=== PATIENT | male | born 1985 | race Caucasian/White ===

== ENCOUNTER 2016-07-27 20:02 | Inpatient (IN) | payer OTHER ==
[~2016-07-27] VITALS: Ht 167.6 cm; Wt 110.2 kg
[~2016-07-27 20:02] MED LIST: ABILIFY MA400 MG/Via IM; ABILIFY MA400 MG/Via IV; ABILIFY15 M1 PO; AMOXIL500 MG PO; BACTRIM DS 8001 TAB PO; CLINDAMYCIN HC300 M1 PO; CRESTOR20 MG PO; FLEXERIL10 MG PO; FLUCONAZOLE100 M1 PO; GEMFIBROZIL600 MG PO; GLUCOSE; HUMULIN R500 UNIT/2; JANUMET 1000 MG1 TAB PO; LAMICTAL 100MG100 MG PO; LAMICTAL200 MG PO; LAMOTRIGINE100 MG PO; LANTUS SOLOS100 U/ML SC; LEVEMIR 10100 UNITS/ SC; LEVEMIR FLEX100 U/M1 SC; LEVEMIR100 U/ML SC; LISINOPRIL10 MG PO; LYRICA100 MG PO; LYRICA75 MG PO; METFORMIN1000 MG PO; METHADONE HCL5 MG PO; METHADONE10 MG/5 ML PO; MOBIC15 MG PO; MOTRIN 400 MG400 MG PO; NOVOLOG 10300 UNITS/ SC; NOVOLOG100 U/ML SC; OMEGA-3-ACID ETH1 GM PO; PANTOPRAZOLE SO40 MG PO; REXULTI2 MG PO; SIMV10 PO; SUPER B COMPLEX1 CAP; [UNRECOGNIZED DRUG - CODE] IV
--- NOTE | 2016-07-27 20:07 | ED PSYCHIATRIC COMPLAINT ---
History of Present Illness General Chief Complaint: Psychiatric Related Complaint Stated Complaint: BIBA FOR +SI Source: patient Exam Limitations: no limitations Vital Signs & Intake/Output Vital Signs & Intake/Output Vital Signs Date Time Temp Pulse Resp B/P Pulse O2 O2 Flow FiO2 Ox Delivery Rate 07/28 0536 97.4 83 20 122/75 91 Room Air 07/28 0322 97.6 81 20 120/86 98 Non 100% ReBreather 07/27 2333 97.1 83 18 111/62 98 Non ReBreather 07/27 2247 96.6 83 18 112/59 98 Non 100% ReBreather 07/27 2016 97.3 106 16 138/74 98 Room Air ED Intake and Output 07/28 0000 07/27 1200 Intake Total Output Total Balance Patient 246 lb Weight Allergies Coded Allergies: NO KNOWN ALLERGIES (06/25/15) Reconcile Medications Aripiprazole (Abilify) 15 MG TABLET 1 TAB PO QPM MENTAL HEALTH (Reported) B COMPLEX WITH VITAMIN C (Super B Complex With C) (Unknown Strength) CAP ( Unknown Dose) SUPPLEMENT (Reported) Brexpiprazole (Rexulti) 2 MG TAB 1 TAB PO DAILY MENTAL HEALTH (Reported) Clindamycin HCl 300 MG CAPSULE 1 CAP PO TID ABCESS (Reported) Fluconazole 100 MG TABLET 1 TAB PO DAILY ABCESS (Reported) Insulin Regular, Human (Humulin R U-500 Kwikpen) (Unknown Strength) INSULN.PEN (Unknown Dose) DIABETES (Reported) Lamotrigine (Lamictal 100MG) 100 MG TAB 1 TAB PO BID DEPRESSION (Reported) METFORMIN HCL (Metformin) 1,000 MG TAB 1 TAB PO BID DIABETES (Reported) Methadone HCl 10 MG/1 ML ORAL.CONC 110 MG PO DAILY HERION (Reported) OMEGA-3 ACID ETHYL ESTERS ([place]-3 Acid Ethyl Esters) 1 GRAM CAPSULE 2 CAP PO BID CHOLESTEROL (Reported) Pantoprazole Sodium 40 MG TABLET.DR 1 TAB PO DAILY AC ACID REFLUX (Reported) Prazosin HCl 1 MG CAPSULE 1 CAP PO QPM PER PT (Reported) Pregabalin (Lyrica) 100 MG CAP 1 CAP PO BID NERVE PAIN (Reported) Trazodone HCl 100 MG TABLET 1 TAB PO QPM SLEEP (Reported) Triage Nurses Notes Reviewed? yes Onset: Gradual Duration: week(s):, waxing and waning Timing: recent history Severity: moderate Associated Symptoms: anxiety, suicidal ideation HPI: 30-year-old gentleman history of diabetes and bipolar disorder presents with depression and suicidality. He states that he had been drinking tonight. He states that he has been hearing voices telling him to kill himself. He states that his psychiatrist has been trying different medications to help the voices go away. He states that he has been compliant with his methadone and denies other drug use. He denies visual hallucinations. He denies homicidality. He is otherwise well. Past History Travel History Traveled to [place] past 21 day No Medical History Any Pertinent Medical History? see below for history Neurological: NONE EENT: NONE Cardiovascular: hypertension Respiratory: SLEEP APNEA USES CPAP Gastrointestinal: NONE Hepatic: NONE Renal: NONE Musculoskeletal: NONE Psychiatric: bipolar disease, depression, IV drug abuse, opioid dependence, substance abuse Endocrine: diabetes Blood Disorders: NONE Cancer(s): NONE ROADING ENGINEER/Reproductive: NONE History of MRSA: No History of VRE: No History of CDIFF: No Surgical History Surgical History: non-contributory Psychosocial History Who do you live with Significant Other What is your primary language Divehi Tobacco Use: Current Daily Use Family History Family History, If Any: MOTHER FH: depression FH: diabetes mellitus FHx: seizures Hx Contributory? No Review of Systems Review of Systems Constitutional: Reports: no symptoms. EENTM: Reports: no symptoms. Respiratory: Reports: no symptoms. Cardiovascular: Reports: no symptoms. GI: Reports: no symptoms. Genitourinary: Reports: no symptoms. Musculoskeletal: Reports: no symptoms. Skin: Reports: no symptoms. Neurological/Psychological: Reports: no symptoms. Hematologic/Endocrine: Reports: no symptoms. Immunologic/Allergic: Reports: no symptoms. All Other Systems: Reviewed and Negative Physical Exam Physical Exam General Appearance: well developed/nourished, mild distress Head: atraumatic Eyes: Bilateral: normal appearance, PERRL, EOMI. Ears, Nose, Throat: normal pharynx, normal ENT inspection, hearing grossly normal Neck: normal inspection, supple Respiratory: normal breath sounds Cardiovascular: regular rate/rhythm Gastrointestinal: soft, non-tender Extremities: normal range of motion Neurological/Psychiatric: awake, anxious, oriented x 3 Appearance/Memory/Insight: disheveled Behavoir/Eye Contact/Speech: AGITATED Thoughts/Hallucinations: auditory hallucinations Skin: intact, normal color, warm/dry SAD PERSONS SAD PERSONS Response Value Male Sex? yes 1 Depression/Hopelessness? yes 2 Excessive Ethanol/Drug Use? yes 1 Rational Thinking Loss? yes 2 Single//? yes 1 Social Support? has no support 1 Total 8 SAD PERSONS Done? yes Progress Differential Diagnosis: PSYCHOSIS VERSUS DRUG ABUSE VERSUS OTHER Plan of Care: Orders Procedure Date/time Status Regular Diet 07/28 B Active Admit to inpatient 07/28 0626 Active BLOOD CULTURE 07/28 0600 Active BLOOD CULTURE 07/28 0555 Active MIXED VENOUS BLOOD GAS (GEN) 07/28 0400 Active BASIC METABOLIC PANEL 07/28 0400 Complete MIXED VENOUS BLOOD GAS (GEN) 07/27 2007 Complete URINE DRUG SCREEN FOR ER ONLY 07/27 2007 Complete ETHANOL 07/27 2007 Complete COMPREHENSIVE METABOLIC PANEL 07/27 2007 Complete CBC WITHOUT DIFFERENTIAL 07/27 2007 Complete ACETONE 07/27 2007 Complete Current Medications Sig/Christopher Start time Last Medication Dose Stop Time Status Admin Methadone HCl 110 MG ONCE ONE 07/28 1000 AC (Dolophine) 07/28 1001 Azithromycin 500 MG ONCE ONE 07/28 0600 AC (Zithromax) 07/28 0659 Dextrose/Water 250 ML (D5W) Laboratory Tests 07/28/16 0412: Bicarbonate Actual 28 H, Mixed VBG pH 7.35, Mixed VBG pCO2 51, Mixed VBG O2 Saturation 70 H, P-50 (Temp Corrected) N, Oxyhemoglobin 97.8, Carboxyhemoglobin 2.0, Methemoglobin 0.0, Calc Total Hemoglobin 15.6, Oxygen Content 20.1, O2 Concentration % 100, O2 Delivery Method NRB, Anion Gap 8, Estimated GFR > 60, BUN/Creatinine Ratio 20.0, Glucose 135 H, Calcium 8.7, Phlebotomy Draw Site L HAND 07/27/162023: Urine Opiates Screen < 100.00, Methadone Screen > 735 H, Barbiturate Screen < 60, Ur Phencyclidine Scrn < 6.00, Amphetamines Screen < 100, U Benzodiazepines Scrn < 85, Urine Cocaine Screen < 50, Urine Cannabis Screen > 80.00 H 07/27/162019: Bicarbonate Actual 22, Mixed VBG pH 7.35, Mixed VBG pCO2 41, Mixed VBG O2 Saturation 60 H, Carboxyhemoglobin 12.8 *H, Calc Total Hemoglobin 17.2, O2 Concentration % R/A, Anion Gap 17 H, Estimated GFR > 60, BUN/Creatinine Ratio 13.3, Glucose 362 H, Calcium 9.6, Total Bilirubin 0.4, AST 17, ALT 31, Alkaline Phosphatase 78, Total Protein 7.7, Albumin 4.5, Globulin 3.2, Albumin/Globulin Ratio 1.4, CBC w Diff NO MAN DIFF REQ, RBC 5.77, MCV 84.7, MCH 29.0, RDW 13.9, MPV 7.2 L, Gran % 53.3, Lymphocytes % 38.1, Monocytes % 4.4, Eosinophils % 3.5, Basophils % 0.7, Absolute Granulocytes 3.3, Absolute Lymphocytes 2.4, Absolute Monocytes 0.3, Absolute Eosinophils 0.2, Absolute Basophils 0, PUBS MCHC 34.2, Phlebotomy Draw Site VENOUS, Serum Alcohol 197.0, Acetone Level NEGATIVE Microbiology 07/28 623 BLOOD: Blood Culture - RECD 07/28 554 BLOOD: Blood Culture - ORD Diagnostic Imaging: Viewed by Me: Radiology Read. Discussed w/RAD: Radiology Read. CXR Impression: right lower lobe infiltrate vs atelectasis Comments: PATIENT: FLOR MARTE PRESENT AGE: 30 PATIENT ACCOUNT NO: [id number] : 83 LOCATION: [facility] ORDERING PHYSICIAN: JAGRUTI MARTINEZ MD SERVICE DATE: 07/28/16 EXAM TYPE: RAD - XRY-PORTABLE CHEST XRAY EXAMINATION: CHEST 1 VIEW CLINICAL INFORMATION: Hypoxia. COMPARISON: 04/04/2016. TECHNIQUE: An AP view of the chest is provided. FINDINGS: The cardiac silhouette is not enlarged. The mediastinal and hilar contours are unremarkable. There are neither pleural effusions nor pneumothoraces. There is streaky bibasilar opacification. In addition, there is more patchy opacification at the lateral right lung base which obscures the right heart border The osseous structures are unremarkable. IMPRESSION: Right greater than left bibasilar airspace disease. While this could correspond to atelectasis, a developing infiltrate at the lateral right base cannot be excluded. Recommendation is for a followup chest series to be obtained following treatment and/or resolution of symptoms to assure resolution of this appearance. DICTATED BY: JOHN PAUL BAI MD DATE/TIME DICTATED:07/28/16605 COAT ROOM ATTENDANT:RAD.OAKLEY DATE/TIME TRANSCRIBED:07/28/16 / 605 CONFIDENTIAL, DO NOT COPY WITHOUT APPROPRIATE AUTHORIZATION. <Electronically signed in Other Vendor System> SIGNED BY: JOHN PAUL BAI MD 07/28/16 06 Departure Departure Disposition: STILL A PATIENT Condition: Stable Clinical Impression Primary Impression: Alcohol intoxication Secondary Impressions: Carbon monoxide poisoning, Depression, Hyperglycemia, Pneumonia Referrals: ZEENAT MCRAE APRN (PCP/Family) Departure Forms: Customer Survey General Discharge Information Comments 07/28/16, 6:27am.... Upon reevaluation this morning, patient was noted to have rhonchi on exam and he was hypoxic to 80% on room air. Chest x-ray revealed right lower lobe early infiltrate versus atelectasis. This would be most consistent with a pneumonia, community-acquired versus aspiration. Given his hypoxia, patient will now be converted from an ED observation to an inpatient admission. Please see my admit note below. Admission Note Spoke With: CHRISSY GIVENS,MICHAEL Broderick Documentation of Exam: Documentation of any treatments & extenuating circumstances including Concerns Regarding Discharge (functional status, medication knowledge or non-compliance, living conditions, etc.) that warrant an admission rather than observation: pt with hypoxia this am, now requiring 02 supplementation. He merits iv abx, 02 , iv fluids, psyche evaluation. Critical Care Note Critical Care Note Critical Care Time: 30-74 min ED Attending Observation Initial Observation Note: I have seen and personally examined FLOR MARTE on 07/27/16 at 2123. I agree with the current emergency department documentation. The disposition (admission or discharge) is uncertain at this time, he needs a period of observation for the following reason(s): [ pt with elevated carbon monoxide level, hyperglycemia, alcoholism and suicidality.... He requires insulin iv and subcutaneous doses to control his hyperglycemia. He will require high flow 02 for his hypercarbia. He will require psychiatric stabilization with meds prior to evaluation by crises. The ED Nurse caring for this patient has been personally informed as to what the patient is being observed for. Observation Re-Evaluation: I have reevaluated FLOR MARTE on 07/28/16 at 0536. The physical findings that support the continued need to observe this patient include ... Patient's follow-up carbon monoxide level is within normal limits. Repeat electrolytes reveal a much improved glucose. He is medically cleared and is able to be evaluated by crisis for his suicidality.
--- NOTE | 2016-07-27 20:13 | NUR ---
PT INOCENTE FROM HOME ON PEER. PT STATED VOICES IN HIS HEAD HAVING BEEN CALLING HIS NAME FOR APPROXIMATELY 7-10 DAYS. VOICES ARE NOT GIVING PT COMMANDS. +SI. -HI. PT DRANK HALF PINT OF VODKA EARLIER TODAY. DENIED ILLICIT DRUG USE. SECURITY AT BEDSIDE TO EDWIN PT. PT CHANGING INTO PAPER SCRUBS.
[2016-07-27] MEDS ORDERED: TRAZODONE HCL100 M1 PO (20:20)
[2016-07-27] MEDS ORDERED: PRAZOSIN HCL1 M1 PO (20:20)
--- NOTE | 2016-07-27 20:31 | NUR ---
LABS SENT (BLUE,SST,LAV,BONNER) VBG DRAWN AND GIVEN TO RESPIRATORY
[2016-07-27 20:33] LABS: ABSOLUTE BASOPHIL COUNT 0 /CUMM (0.0-0.2); ABSOLUTE EOSINOPHIL COUNT 0.2 /CUMM (0.0-0.7); ABSOLUTE GRANULOCYTE CT 3.3 /CUMM (1.4-6.5); ABSOLUTE LYMPH COUNT 2.4 /CUMM (1.2-3.4); ABSOLUTE MONOCYTE COUNT 0.3 /CUMM (0.10-0.60); BASOPHIL % 0.7 % (0.0-2.0); EOSINOPHIL % 3.5 % (0-5); GRANULOCYTE % 53.3 % (42.2-75.2); HEMATOCRIT 48.9 % (42-52); MEAN CORPUSCULAR HGB CONC 34.2 G/DL (33.0-37.0); MEAN CORPUSCULAR VOLUME 84.7 FL (80.0-94.0); MEAN PLATELET VOLUME 7.2 FL (7.4-10.4); PLATELET COUNT 305 /CUMM (130-400); RBC DISTRIBUTION WIDTH 13.9 % (11.5-14.5); RED BLOOD CELL CT 5.77 /CUMM (4.70-6.10); WHITE BLOOD CELL COUNT 6.2 /CUMM (4.8-10.8)
--- NOTE | 2016-07-27 20:34 | NUR ---
URINE TRIO SENT TO LAB
--- NOTE | 2016-07-27 20:36 | NUR ---
PT MEDICATED WITH ZYDIS 10MG ODT. 1 VALUABLE BAG SECURED IN SAFE, 1 BELONGING BAG SECURED IN CLOSET, AND 1 KNIFE SECURED BY SECURITY.
--- NOTE | 2016-07-27 20:43 | NUR ---
RESPIRATORY AT BEDSIDE - PT'S CARBOXYHEMOGLOBIN 12.5 - DR MARTINEZ ORDERED PT TO BE ON NRB
--- NOTE | 2016-07-27 20:45 | NUR ---
CRITICAL TEST RESULTS [id number] FLOR MARTE 30 M TESTS AND RESULTS: CARBOXYHEMOGLOBIN 12.8 Results received and read back by: JAZMINE JOSEPH Results received date and time: 07/27/162044 The following provider was notified of the results, and read the results back: DR MARTINEZ Notified date and time: 07/27/16 at 2038
--- NOTE | 2016-07-27 21:47 | NUR ---
ESTABLISHED IV RIGHT FOREARM #20. 1 LITER NS BOLUS RUNNING.
--- NOTE | 2016-07-27 22:10 | NUR ---
NS BOLUS STARTED. PT MEDICATED WITH NOVOLIN 5 UNITS SC AND NOVOLIN 5 UNITS IVP.
--- NOTE | 2016-07-27 22:40 | NUR ---
IV BOLUS COMPLETE. BLOOD GLUCOSE REASSESED AND IS 215MG/DL
--- NOTE | 2016-07-27 22:56 | NUR ---
2ND LITER NS BOLUS STARTED. PT MEDICATED WITH NOVOLIN 5 UNITS SC
--- NOTE | 2016-07-28 03:23 | NUR ---
ASSUMED CARE AT THIS TIME, PT AWAKE TO VERBAL STIMULI , O2 SAT ON 100 % O2 98 %. PT ALERT AND ORIENTED AND STATES THAT HE FEELS BETTER, COMPLAINS OF 6/10 BILATERAL LEG PAIN THAT HE STATES IS CHRONIC FOR HIM. PT AWARE THAT HE IS TO GET REPEAT BLOOD WORK AT 0400. PT WATCHING TV AT THIS TIME. SITTER REMAINS
--- NOTE | 2016-07-28 04:18 | NUR ---
LABS AND REPEAT VBG SENT BY [facility]
--- NOTE | 2016-07-28 05:39 | NUR ---
PT AWAKE AND ALERT, PER DR CRANDALL PT TO BE REMOVED FROM HIGH FLOW O2 AND TRIAL ROOM AIR, PT O2 SAT NOTED TO DROP TO 89-90 % ON RA, MD AWARE AND PT PLACED ON 2L VIA NC AT THIS TIME, PT STATES THAT HE HAS HAD A LOOSE COUGH, PRODUCTIVE OF YELLOW SPUTUM FOR THE PAST WEEK. 02 SAT NOTED WHILE THIS NURSE AT BEDSIDE TO BE 88 % ON 2L VIA NC, O2 INCREASED TO 5L NC AND SATURATION ONLY INCREASED TO 90-91 % MD AWARE. CXR ORDERED, FS 147 AT THIS TIME
--- NOTE | 2016-07-28 05:47 | NUR ---
PER DR CRANDALL PT PLACED BACK ON NON REBREATHER 15L, O2 SAT 94 % .SITTER REMAINS WITH PT
--- NOTE | 2016-07-28 06:12 | RADIOLOGY REPORT ---
EXAMINATION: CHEST 1 VIEW CLINICAL INFORMATION: Hypoxia. COMPARISON: 04/04/2016. TECHNIQUE: An AP view of the chest is provided. FINDINGS: The cardiac silhouette is not enlarged. The mediastinal and hilar contours are unremarkable. There are neither pleural effusions nor pneumothoraces. There is streaky bibasilar opacification. In addition, there is more patchy opacification at the lateral right lung base which obscures the right heart border The osseous structures are unremarkable. IMPRESSION: Right greater than left bibasilar airspace disease. While this could correspond to atelectasis, a developing infiltrate at the lateral right base cannot be excluded. Recommendation is for a followup chest series to be obtained following treatment and/or resolution of symptoms to assure resolution of this appearance.
--- NOTE | 2016-07-28 06:38 | NUR ---
BC X 2 DRAWN AND SENT, IV ROCEPHIN INFUSING PER ORDER. O2 SAT 94 % ON 15 L NON REBREATHER. PT TO BE ADMITTED TO HOSPITAL FOR PNA
--- NOTE | 2016-07-28 06:47 | NUR ---
O2 SAT 99 % ON NON REBREATHER, PLACED ON 5L VIA NC AT THIS TIME AND O2 SAT 94 % WILL CONTINUE TO MONITOR . IV ROCEPHIN GIVEN AND IV ZITHROMAX INFUSING AT THIS TIME
--- NOTE | 2016-07-28 07:27 | NUR ---
BED 237
--- NOTE | 2016-07-28 07:31 | NUR ---
ASSUMED CARE OF PT AT THIS TIME. PT SLEEPING BUT WAKES TO VERBAL STIMULI. STATES "I FEEL GOOD". PT DENIES FEELING ANY COMPLAINTS. DENIES PAIN. DENIES SOB. STATES HE DID EAT BREAKFAST THIS AM AND IS NOT HUNGRY AT THIS TIME. ZITHROMAX CONTINUES TO INFUSE. 02 SAT 97% ON 5L. NORMAL SINUS ON MONITOR, RATE 89 AWARE HE IS ADMITTED TO HOSPITAL AND WILL BE TRANSPORTED UPSTAIRS. SITTER REMAINS PRESENT FOR SAFETY/OBSERVATION.
--- NOTE | 2016-07-28 07:54 | NUR ---
REPORT GIVEN TO LUCREC[facility] ON 2N TRANSPORT CALLED
--- NOTE | 2016-07-28 07:55 | NUR ---
PT NOTED TO HAVE 1 VALUABLES BAG IN ED SAFE. SPOKE WITH NURSING ENAMEL [facility] WHO STATES TO SEND IT TO THE FLOOR WITH PT.
--- NOTE | 2016-07-28 07:57 | History & Physical ---
KENIA JOINER 07/28/16 0755: General Information and HPI MD Statement: I have seen and personally examined FLOR MARTE and documented this H&P. The patient is a 30 year old M who presented with a patient stated chief complaint of auditory hallucinations and not feeling well from couple of days [] . Source of Information: patient Exam Limitations: no limitations History of Present Illness: Patient is 30-year-old gentleman with past medical history significant for IV drug abuse and currently been clean for 1 year, hypertension, insulin- dependent diabetes mellitus, dyslipidemia, hep C, bipolar disorder, anxiety and depression came with chief complaint of not feeling well from couple of days. According to him his medications were messed up lately and he wasn't sure each medication he has to take and which were not to, he also admits that he was not feeling well and asked his friend called ambulance and brought him to ER. Patient admits that he had voices in his head telling him to kill himself but he denied any suicidal attempt. He denied any auditory hallucinations at the current moment neither visual hallucinations. Patient admits that he had productive cough of yellowish phlegm and also mild pleuritic chest pain but denies fever, headache, vomiting or bowel complaints. He endorses having chills and night sweats with poor appetite and significant almost 40-60 pound weight loss last year. Not compliant with his physician/psychiatry follow-ups. He had some nausea after starting new antipsychotics but he admits that he was trying to take them. Denied any seizures or loss of consciousness. Patient was at the beginning was kept as ED observation but found to have desaturation to low 80s and his oxygen saturations went up with supplemental oxygen and currently he is on 2 L of nasal cannula. Chest x-ray was ordered and done that was significant for bibasilar airspace disease. Of note patient is also admitting that he had half pint of vodka before coming to the hospital but he is not taking alcohol on a daily basis for many months. He is a current smoker almost a pack a day. [facility] All[facility]ies/Medications Allergies: Coded Allergies: NO KNOWN ALLERGIES (06/25/15) Home Med list Aripiprazole (Abilify) 15 MG TABLET 1 TAB PO QPM MENTAL HEALTH (Reported) B COMPLEX WITH VITAMIN C (Super B Complex With C) (Unknown Strength) CAP ( Unknown Dose) SUPPLEMENT (Reported) Brexpiprazole (Rexulti) 2 MG TAB 1 TAB PO DAILY MENTAL HEALTH (Reported) Gemfibrozil 600 MG TABLET 1 TAB PO BID HIGH CHOLESTROL (Reported) Insulin Regular, Human (Humulin R U-500 Kwikpen) (Unknown Strength) INSULN.PEN (Unknown Dose) DIABETES (Reported) Lamotrigine (Lamictal 100MG) 100 MG TAB 1 TAB PO BID DEPRESSION (Reported) Losartan Potassium (Cozaar) 25 MG TABLET 1 TAB PO DAILY HIGH BLOOD PRESSURE ( Reported) METFORMIN HCL (Metformin) 1,000 MG TAB 1 TAB PO BID DIABETES (Reported) Methadone HCl 10 MG/1 ML ORAL.CONC 110 MG PO DAILY HERION (Reported) OMEGA-3 ACID ETHYL ESTERS ([place]-3 Acid Ethyl Esters) 1 GRAM CAPSULE 2 CAP PO BID CHOLESTEROL (Reported) Pantoprazole Sodium 40 MG TABLET.DR 1 TAB PO DAILY AC ACID REFLUX (Reported) Prazosin HCl 1 MG CAPSULE 1 CAP PO QPM PER PT (Reported) Pregabalin (Lyrica) 100 MG CAP 1 CAP PO BID NERVE PAIN (Reported) Trazodone HCl 100 MG TABLET 1 TAB PO QPM SLEEP (Reported) Compliance With Home Meds: UNKNOWN Past History Travel History Traveled to [place] past 21 day No Medical History Neurological: NONE EENT: NONE Cardiovascular: hypertension Respiratory: SLEEP APNEA USES CPAP Gastrointestinal: NONE Hepatic: NONE Renal: NONE Musculoskeletal: NONE Psychiatric: bipolar disease, depression, IV drug abuse, opioid dependence, schizophrenia, substance abuse Endocrine: diabetes Blood Disorders: NONE Cancer(s): NONE HYDROGRAPHER/Reproductive: NONE History of MRSA: No History of VRE: No History of CDIFF: No Isolation History: Standard Surgical History Surgical History: non-contributory Past Family/Social History Family History Relations & Conditions if any MOTHER FH: depression FH: diabetes mellitus FHx: seizures Psychosocial History ETOH Use: occasional use Illicit Drug Use: cocaine Functional Ability ADLs Independent: dressing, eating, toileting, bathing. Ambulation: independent Review of Systems Review of Systems Constitutional: Reports: chills, weakness. EENTM: Denies: blurred vision. Cardiovascular: Denies: edema, orthopena. Respiratory: Reports: cough. GI: Reports: nausea. Denies: constipation. Genitourinary: Reports: dysuria. Denies: frequency, hematuria. Musculoskeletal: Denies: back pain, gout. Exam & Diagnostic Data Last 24 Hrs of Vital Signs/I&O Vital Signs Date Time Temp Pulse Resp B/P Pulse O2 O2 Flow FiO2 Ox Delivery Rate 07/28 0730 97.8 89 18 125/61 97 Nasal 5.0L Cannula 07/28 0644 97.6 78 20 126/66 95 Nasal 5.0L Cannula 07/28 0536 97.4 83 20 122/75 91 Room Air 07/28 0322 97.6 81 20 120/86 98 Non 100% ReBreather 07/27 2333 97.1 83 18 111/62 98 Non ReBreather 07/27 2247 96.6 83 18 112/59 98 Non 100% ReBreather 07/27 2017 97.3 106 16 138/74 98 Room Air Intake & Output 07/28 0800 07/28 0000 07/27 1600 Intake Total Output Total Balance Patient 246 lb Weight Physical Exam General Appearance Alert, Oriented X3, Cooperative, No Acute Distress Skin No Rashes Neck Supple Lungs BILATERAL BASAL RHONCHI AND COARSE WHEEZING Abdomen Soft Neurological Normal Speech Extremities No Clubbing, No Cyanosis, No Edema Last 24 Hrs of Labs/Javed: Laboratory Tests 07/28/16 0412: Bicarbonate Actual 28 H, Mixed VBG pH 7.35, Mixed VBG pCO2 51, Mixed VBG O2 Saturation 70 H, P-50 (Temp Corrected) N, Oxyhemoglobin 97.8, Carboxyhemoglobin 2.0, Methemoglobin 0.0, Calc Total Hemoglobin 15.6, Oxygen Content 20.1, O2 Concentration % 100, O2 Delivery Method NRB, Anion Gap 8, Estimated GFR > 60, BUN/Creatinine Ratio 20.0, Glucose 135 H, Calcium 8.7, Phlebotomy Draw Site L HAND, HIV 1&2 Ab Western Blot Pending 07/27/162023: Urine Opiates Screen < 100.00, Methadone Screen > 735 H, Barbiturate Screen < 60, Ur Phencyclidine Scrn < 6.00, Amphetamines Screen < 100, U Benzodiazepines Scrn < 85, Urine Cocaine Screen < 50, Urine Cannabis Screen > 80.00 H, Urine Color YEL, Urine Clarity CLEAR, Urine pH 6.0, Ur Specific [place] <= 1.005, Urine Protein TRACE H, Urine Ketones NEG, Urine Nitrite NEG, Urine Bilirubin NEG, Urine Urobilinogen 0.2, Ur Leukocyte Esterase NEG, Ur Microscopic SEDIMENT EXAMINED, Urine RBC 1-3, Urine WBC 1-3 H, Ur Epithelial Cells RARE, Urine Mucus RARE, Urine Hemoglobin NEG, Urine Glucose >=1000 H 07/27/16 2020: Bicarbonate Actual 22, Mixed VBG pH 7.35, Mixed VBG pCO2 41, Mixed VBG O2 Saturation 60 H, Carboxyhemoglobin 12.8 *H, Calc Total Hemoglobin 17.2, O2 Concentration % R/A, Anion Gap 17 H, Estimated GFR > 60, BUN/Creatinine Ratio 13.3, Glucose 362 H, Calcium 9.6, Total Bilirubin 0.4, AST 17, ALT 31, Alkaline Phosphatase 78, Total Protein 7.7, Albumin 4.5, Globulin 3.2, Albumin/Globulin Ratio 1.4, CBC w Diff NO MAN DIFF REQ, RBC 5.77, MCV 84.7, MCH 29.0, RDW 13.9, MPV 7.2 L, Gran % 53.3, Lymphocytes % 38.1, Monocytes % 4.4, Eosinophils % 3.5, Basophils % 0.7, Absolute Granulocytes 3.3, Absolute Lymphocytes 2.4, Absolute Monocytes 0.3, Absolute Eosinophils 0.2, Absolute Basophils 0, PUBS MCHC 34.2, Phlebotomy Draw Site VENOUS, Serum Alcohol 197.0, Acetone Level NEGATIVE Microbiology 07/28 824 LOWER RESP: Respiratory Culture - ORD 07/28 824 LOWER RESP: Gram Stain - ORD 07/28 635 BLOOD: Blood Culture - RECD 07/28 623 BLOOD: Blood Culture - RECD Diagnostic Data EKG Results , Sinus rhythm, QTC 455, no acute ST T-wave changes CXR Results EXAM TYPE: RAD - XRY-PORTABLE CHEST XRAY EXAMINATION: CHEST 1 VIEW CLINICAL INFORMATION: Hypoxia. COMPARISON: 04/04/2016. TECHNIQUE: An AP view of the chest is provided. FINDINGS: The cardiac silhouette is not enlarged. The mediastinal and hilar contours are unremarkable. There are neither pleural effusions nor pneumothoraces. There is streaky bibasilar opacification. In addition, there is more patchy opacification at the lateral right lung base which obscures the right heart border The osseous structures are unremarkable. IMPRESSION: Right greater than left bibasilar airspace disease. While this could correspond to atelectasis, a developing infiltrate at the lateral right base cannot be excluded. Recommendation is for a followup chest series to be obtained following treatment and/or resolution of symptoms to assure resolution of this appearance. Assessment/Plan Assessment: Patient is 30-year-old gentleman with past medical history of IV drug abuse, hep C, bipolar disease, anxiety, depression, insulin-dependent diabetes mellitus, hyperlipidemia, hypertension and polysubstance abuse on methadone came with a decreased hallucinations and positive suicidal ideation and found to have bibasilar airspace disease significant for pneumonia and hypoxia to low 80s requiring supplemental oxygen. We will admit patient to general medical floor and was taken for the following problems Problem #1 hypoxia, bilateral basilar airspace disease with productive cough most likely secondary to community-acquired pneumonia versus aspiration pneumonia which is less likely given no history of seizure and heavy alcohol abuse lately. * Vital signs every shift * We'll trend WBC count currently is normal WBC count * Seizure precautions * CIWA protocol and O2 was Ativan when necessary as per CIWA * IV ceftriaxone and azithromycin for now and will change if needed * Sputum culture, blood cultures * TRC and nebulization * Will start patient on 1 mg Ativan every 6 and will taper as per CIWA protocol Problem #2 hypertension and hyperlipidemia * We'll continue home medications including gemfibrozil and Cozaar Problem #3 history of diabetes mellitus * The checks and insulin sliding scale Problem #4 history of bipolar disease, methadone dependence, anxiety and depression on antipsychotics * We'll continue his home antipsychotics, anxiolytics * Psych consultation * Will continue methadone 110 mg daily Problem #5 history of significant weight loss and IV drug abuse * We'll send HIV testing Problem #6: Oral Thrush * [place]Statin oral suspension Diabetic diet Patient is full code Pharmacological DVT prophylaxis As Ranked By This Provider Problem List: 1. Pneumonia 2. Depression Core Measures/Miscellaneous Acute Coronary Syndrome ACS Diagnosis: No Cerebrovascular Accident CVA/TIA Diagnosis: No Congestive Heart Failure CHF Diagnosis: No Venous Thromboembolism VTE Risk Factors: Acute medical illness VTE Prophylaxis Ordered Inpt: Pharm- Lovenox No Mech VTE prophylaxis d/t: No contraindications No VTE Pharm Prophylaxis d/t: No contraindications VTE Diagnosis: No VTE Type: NONE VTE Confirmed by (Test): NONE Severe Sepsis Severe Sepsis Present: No Septic Shock Septic Shock Present: No Miscellaneous Documentation Attending Case Discussed With: CHRISSY GIVENS,MICHAEL Broderick Primary Care Physician: ZEENAT MCRAE APRN Patient sees these Specialists PSYCHIATRY Level of Patient Care: General Medicine Resident Review Statement Resident Statement: examined this patient Other Findings: Patient is admitted by resident MACARIO GARCIA MD 07/28/16 1207: Attending MD Review Statement Attending Statement Attending MD Statement: examined this patient, discuss w/resident/PA/BIOMEDICAL ELECTRONICS TECHNICIAN, agreed w/resident/PA/BIOMEDICAL ELECTRONICS TECHNICIAN, reviewed EMR data (avail), discussed with nursing, reviewed images, amended to note Attending Assessment/Plan: 30 y/o M with pmh sig for hypertension, insulin-dependent diabetes mellitus, dyslipidemia, hep C, bipolar disorder, anxiety and depression who p/w not feeling well over the last few days. Has been feeling more depressed. Also c/o cough and feeling sob as well as DOMINGO from last couple of weeks. Patient has been feeling more depressed therefore he started to drink alcohol. He claims that he normally does not drink every day but when he does he drinks a large amount. In the emergency room patient had expressed suicidal ideation. He claims that this comes and goes. He was also hypoxic and required oxygen. Vital Signs Date Time Temp Pulse Resp B/P Pulse O2 O2 Flow FiO2 Ox Delivery Rate 07/28 1151 Nasal 2.0L Cannula 07/28 1040 85 120/68 07/28 0855 97.8 85 20 120/68 96 Nasal 2.0L Cannula 07/28 0730 97.8 89 18 125/61 97 Nasal 5.0L Cannula 07/28 0644 97.6 78 20 126/66 95 Nasal 5.0L Cannula 07/28 0536 97.4 83 20 122/75 91 Room Air 07/28 0322 97.6 81 20 120/86 98 Non 100% ReBreather 07/27 2333 97.1 83 18 111/62 98 Non ReBreather 07/277 96.6 83 18 112/59 98 Non 100% ReBreather 07/27 2016 97.3 106 16 138/74 98 Room Air on exam: aox3, nad. cv; s1, s2, rrr. resp; + course bs and b/l exp wheeze. abd; soft, nt, bs+ ext; no edema. Laboratory Tests 07/28 Blood Gas Bicarbonate Actual (22 - 26 MEQ/L) 28 H Mixed VBG pH (7.31 - 7.41 PH) 7.35 Mixed VBG pCO2 (41 - 51 TORR) 51 Mixed VBG O2 Saturation (35 - 45 TORR) 70 H P-50 (Temp Corrected) N Oxyhemoglobin (94 - 100 %) 97.8 Carboxyhemoglobin (1.5 - 5.0 %) 2.0 Methemoglobin (0.0 - 3.0 %) 0.0 Calc Total Hemoglobin (13.5 - 18.0 %) 15.6 Oxygen Content (15 - 23 VOL%) 20.1 O2 Concentration % 100 O2 Delivery Method NRB Chemistry Sodium (137 - 145 mmol/L) 144 Potassium (3.5 - 5.1 mmol/L) 3.9 Chloride (98 - 107 mmol/L) 108 H Carbon Dioxide (22 - 30 mmol/L) 28 Anion Gap (5 - 16) 8 BUN (9 - 20 mg/dL) 10 Creatinine (0.7 - 1.2 mg/dL) 0.5 L Estimated GFR (>60 ml/min) > 60 BUN/Creatinine Ratio (7 - 25 %) 20.0 Glucose (65 - 99 mg/dL) 135 H Calcium (8.4 - 10.2 mg/dL) 8.7 Miscellaneous Phlebotomy Draw Site L HAND Serology HIV 1&2 Ab Western Blot (NONREACTIVE) NONREACTIVE Toxicology Urine Opiates Screen (>2000 NG/ML) < 100.00 Methadone Screen (>300 NG/ML) > 735 H Barbiturate Screen (>200 NG/ML) < 60 Ur Phencyclidine Scrn (>25 NG/ML) < 6.00 Amphetamines Screen (>1000 NG/ML) < 100 U Benzodiazepines Scrn (>200 NG/ML) < 85 Urine Cocaine Screen (>300 NG/ML) < 50 Urine Cannabis Screen (>50 NG/ML) > 80.00 H Urines Urine Color (YEL,AMB,STR) YEL Urine Clarity (CLEAR) CLEAR Urine pH (5.0 - 8.0) 6.0 Ur Specific [place] (1.001 - 1.035) <= 1.005 Urine Protein (NEG,<30 MG/DL) TRACE H Urine Ketones (NEG) NEG Urine Nitrite (NEG) NEG Urine Bilirubin (NEG) NEG Urine Urobilinogen (0.1 - 1.0 EU/dl) 0.2 Ur Leukocyte Esterase (NEG) NEG Ur Microscopic SEDIMENT EXAMINED Urine RBC (0 - 5 /HPF) 1-3 Urine WBC (0 - 2 /HPF) 1-3 H Ur Epithelial Cells (NONE,FEW) RARE Urine Mucus (FEW,NONE) RARE Urine Hemoglobin (NEG) NEG Urine Glucose (N MG/DL) >=1000 H 07/27 2020 Blood Gas Bicarbonate Actual (22 - 26 MEQ/L) 22 Mixed VBG pH (7.31 - 7.41 PH) 7.35 Mixed VBG pCO2 (41 - 51 TORR) 41 Mixed VBG O2 Saturation (35 - 45 TORR) 60 H Carboxyhemoglobin (1.5 - 5.0 %) 12.8 *H Calc Total Hemoglobin (13.5 - 18.0 %) 17.2 O2 Concentration % R/A Chemistry Sodium (137 - 145 mmol/L) 142 Potassium (3.5 - 5.1 mmol/L) 3.7 Chloride (98 - 107 mmol/L) 100 Carbon Dioxide (22 - 30 mmol/L) 24 Anion Gap (5 - 16) 17 H BUN (9 - 20 mg/dL) 8 L Creatinine (0.7 - 1.2 mg/dL) 0.6 L Estimated GFR (>60 ml/min) > 60 BUN/Creatinine Ratio (7 - 25 %) 13.3 Glucose (65 - 99 mg/dL) 362 H Calcium (8.4 - 10.2 mg/dL) 9.6 Total Bilirubin (0.2 - 1.3 mg/dL) 0.4 AST (17 - 59 U/L) 17 ALT (21 - 72 U/L) 31 Alkaline Phosphatase (< 127 U/L) 78 Total Protein (6.3 - 8.2 g/dL) 7.7 Albumin (3.5 - 5.0 g/dL) 4.5 Globulin (1.9 - 4.2 gm/dL) 3.2 Albumin/Globulin Ratio (1.1 - 2.2 %) 1.4 Hematology CBC w Diff NO MAN DIFF REQ WBC (4.8 - 10.8 /CUMM) 6.2 RBC (4.70 - 6.10 /CUMM) 5.77 Hgb (14.0 - 18.0 G/DL) 16.7 Hct (42 - 52 %) 48.9 MCV (80.0 - 94.0 FL) 84.7 MCH (27.0 - 31.0 PG) 29.0 RDW (11.5 - 14.5 %) 13.9 Plt Count (130 - 400 /CUMM) 305 MPV (7.4 - 10.4 FL) 7.2 L Gran % (42.2 - 75.2 %) 53.3 Lymphocytes % (20.5 - 51.1 %) 38.1 Monocytes % (1.7 - 9.3 %) 4.4 Eosinophils % (0 - 5 %) 3.5 Basophils % (0.0 - 2.0 %) 0.7 Absolute Granulocytes (1.4 - 6.5 /CUMM) 3.3 Absolute Lymphocytes (1.2 - 3.4 /CUMM) 2.4 Absolute Monocytes (0.10 - 0.60 /CUMM) 0.3 Absolute Eosinophils (0.0 - 0.7 /CUMM) 0.2 Absolute Basophils (0.0 - 0.2 /CUMM) 0 PUBS MCHC (33.0 - 37.0 G/DL) 34.2 Miscellaneous Phlebotomy Draw Site VENOUS Toxicology Serum Alcohol (<10 MG/DL) 197.0 Acetone Level (NEGATIVE) NEGATIVE CXR: Right greater than left bibasilar airspace disease. While this could correspond to atelectasis, a developing infiltrate at the lateral right base cannot be excluded. A/P: 30 y/o M with pmh sig for hypertension, insulin-dependent diabetes mellitus , dyslipidemia, hep C, bipolar disorder, anxiety and depression admitted with community acquired pneumonia, acute alcohol Intoxication, worsening depression, anxiety as well as suicidal ideation. Patient is admitted to medical floor. Patient be started on antibiotics. We'll obtain sputum cultures. Patient is also methadone dependent for history off chronic pain. We'll continue that. Patient be started on CIWA protocol, scheduled and when necessary Ativan as well as multivitamin, folate and thiamine. Patient should have a one-to-one sitter and psych consult should be obtained. Please order TRC nebs. Please confirm and continue home medications. Patient is also diabetic differently he will need to be on sliding scale coverage with Accu-Cheks. DVT prophylaxis: Lovenox. full code.
[2016-07-28] MEDS ORDERED: GEMFIBROZIL600 M1 PO (08:22)
[2016-07-28] MEDS ORDERED: COZAAR25 M1 PO (08:22)
--- NOTE | 2016-07-28 08:34 | NUR ---
HOUSE STAFF STATES THEY WILL BE ORDERING AN EKG BUT OK TO SEND PT TO FLOOR, "THEY CAN DO IT UPSTAIRS. HE CAN GO". PT TRANSPORTED AT THIS TIME; AWAKE, ALERT AND CONVERSING WITH NO DISTRESS NOTED; SAT 97% ON 5L. DENIES PAIN. ZITHROMAX COMPLETED. SITTER ACCOMPANYING PATIENT ON TRANSPORT.
[2016-07-28 08:55] VITALS: BP 120/68
--- NOTE | 2016-07-28 12:43 | Admission Certification ---
Admission Certification Certification Statement - As attending physician, I certify that at the time of - admission, based on clinical presentation, severity of - symptoms, need for further diagnostic testing and - therapeutic interventions, and risk of adverse outcomes - without in-hospital treatment, in my clinical assessment, - this patient requires an acute hospital stay for a minimum - of two nights or longer. I have also considered psychsocial - factors such as support system, advanced age, financial - issues, cognitive issues, and failed out-patient treatments, - past re-admission history, safety of patient, and lack of - compliance as applicable. Specific rationale supporting this admission is: Patient is admitted with clarity for pneumonia, acute alcohol intoxication, worsening depression and anxiety as well as suicidal ideation or needs IV antibiotics, psych evaluation.
[2016-07-28 13:48] VITALS: BP 120/70
[2016-07-28 19:00] VITALS: BP 128/60
[2016-07-28 22:55] VITALS: BP 130/80
[2016-07-29] VITALS (7 sets, daily range): BP systolic 100–124; BP diastolic 60–80
--- NOTE | 2016-07-29 07:22 | PN- Housestaff ---
TRUMAN CALI 07/29/16 0722: Subjective Follow-up For: Community-acquired pneumonia versus aspiration pneumonia. Alcohol abuse Subjective: Patient seen and examined today seems better slept well overnight. He remained afebrile breathing improved. Denies any chest discomfort .Blood cultures and sputum cultures are pending Will continue with IV ceftriaxone and azithromycin for now. CIWA scores remained low will taper the Ativan 1 mg every 8 hours continue Ativan as per CIWA. Review of Systems Constitutional: Denies: chills, diaphoresis, fever. EENTM: Denies: blurred vision, double vision, visual changes, eye pain. Cardiovascular: Denies: chest pain, edema, orthopena. Respiratory: Denies: cough, hemoptysis, orthopnea, short of breath. Gastrointestinal: Denies: abdominal pain, bloating, constipation, diarrhea. Genitourinary: Denies: discharge, dysuria, frequency, hesitation. Musculoskeletal: Denies: back pain, joint pain, joint swelling. Objective Last 24 Hrs of Vital Signs/I&O Vital Signs Date Time Temp Pulse Resp B/P Pulse O2 O2 Flow FiO2 Ox Delivery Rate 07/29 0834 76 124/76 07/29 0659 97.8 76 18 124/76 91 Room Air 07/29 0200 97.6 62 18 118/76 93 CPAP 07/29 0147 71 92 07/28 2255 96.5 65 20 130/80 95 CPAP 2.0L 07/28 2129 60 98 07/28 2116 72 110/78 07/28 1900 97.6 93 18 128/60 92 Room Air 07/28 1538 97 Nasal 2.0L Cannula 07/28 1348 98.8 76 20 120/70 95 07/28 1151 Nasal 2.0L Cannula 07/28 1040 85 120/68 07/28 0855 97.8 85 20 120/68 96 Nasal 2.0L Cannula Intake & Output 07/29 1600 07/29 0800 07/29 0000 Intake Total 120 Output Total Balance 120 Intake, Oral 120 Physical Exam General Appearance: Alert, Oriented X3 Skin: No Rashes, No Breakdown HEENT: Atraumatic, PERRLA Neck: Supple, No JVD Cardiovascular: Regular Rate, Normal S1, Normal S2 Lungs: Clear to Auscultation, Normal Air Movement Abdomen: Normal Bowel Sounds, Soft Current Medications: Current Medications Sig/Christopher Start time Last Medication Dose Route Stop Time Status Admin Acetaminophen 650 MG Q6P PRN 07/28 0800 AC PO Albuterol Sulfate 2 PUF Q4P PRN 07/28 1200 AC INH Aripiprazole 15 MG QPM 07/28 2200 AC 07/28 PO 2115 Azithromycin 500 MG DAILY 07/29 1000 AC Dextrose/Water 250 ML IV Azithromycin 500 MG DAILY 07/28 1000 DC Dextrose/Water 250 ML IV Ceftriaxone Sodium 1,000 MG DAILY 07/29 1000 AC IV Ceftriaxone Sodium 1,000 MG DAILY 07/28 1000 DC IV Enoxaparin Sodium 40 MG DAILY 07/28 1000 AC 07/29 SC 0836 Folic Acid 1 MG DAILY 07/28 1000 AC 07/29 PO 0836 Gemfibrozil 600 MG BID 07/28 1000 AC 07/29 PO 0835 Hydromorphone HCl 0.5 MG Q4P PRN 07/28 0800 AC IV Insulin Aspart 4 UNITS ONCE ONE 07/28 2330 DC 07/28 SC 07/28 2331 2325 Insulin Aspart 0 TIDAC 07/28 0800 AC 07/28 SC 1725 Ketorolac 15 MG Q6P PRN 07/28 0800 AC Tromethamine IV Lamotrigine 100 MG BID 07/28 1000 AC 07/28 PO 2115 Lorazepam 1 MG Q8 07/29 1400 UNVr PO Lorazepam 1 MG Q6 07/28 1200 DC 07/29 PO 0642 Lorazepam 0 Q1P PRN 07/28 0800 AC IV Losartan Potassium 25 MG DAILY 07/28 1000 AC 07/29 PO 0834 Methadone HCl 110 MG ONCE ONE 07/28 1000 DC 07/28 PO 07/28 1001 0933 Methadone HCl 110 MG DAILY 07/28 1000 AC 07/29 PO 0827 Multivitamins 1 TAB DAILY 07/28 1000 AC 07/28 PO 1042 Nystatin 5 ML 4 TIMES/DAY 07/28 1000 AC 07/28 PO 2115 Patient Medication 1 ED .STK-MED ONE 07/28 1403 DC Teaching ED 07/28 1404 Prazosin HCl 1 MG QPM 07/28 2200 AC 07/28 PO 2116 Pregabalin 100 MG BID 07/28 1000 AC 07/29 PO 0835 Thiamine HCl 100 MG DAILY 07/28 1000 AC 07/29 PO 0836 Assessment/Plan Assessment: Patient is 30-year-old gentleman with past medical history of IV drug abuse, hep C, bipolar disease, anxiety, depression, insulin-dependent diabetes mellitus, hyperlipidemia, hypertension and polysubstance abuse on methadone came with a decreased hallucinations and positive suicidal ideation and found to have bibasilar airspace disease significant for pneumonia and hypoxia to low 80s requiring supplemental oxygen. Patient has been admitted to general medical floor for the following problems Problem #1 hypoxia, bilateral basilar airspace disease with productive cough most likely secondary to community-acquired pneumonia: * Continue IV azithromycin and ceftriaxone pending sputum and blood cultures * Vital signs every shift. * TRC nebs as needed. 2. Alcohol abuse: * CIWA scores remained low will taper the Ativan 1 mg every 8 hours continue Ativan as per CIWA. * Continue thiamine, folate and vitamin B12 * Continue seizure and fall precautions. * Social consult * Follow psych recommendations 3 hypertension and hyperlipidemia: * We'll continue home medications including gemfibrozil and Cozaar. 4.history of diabetes mellitus: * Continue with NovoLog sliding scale. * Hemoglobin A1c in May 2015 was 13.2 Will recheck it again * Continue finger sugar sticks 5. history of bipolar disease, methadone dependence, anxiety and depression on antipsychotics * We'll continue his home antipsychotics, anxiolytics * Psych consultation * Will continue methadone 110 mg daily. 6 history of significant weight loss and IV drug abuse * HIV test came negative * Follow-up further workup as an outpatient. 7.Oral Thrush * NYStatin oral suspension Diabetic diet Patient is full code Pharmacological DVT prophylaxis Problem List: 1. Pneumonia 2. Alcohol intoxication Pain Ratin Pain Location: No pain at this time Pain Goal: Remain pain free Pain Plan: When necessary Tylenol Tomorrow's Labs & Rationales: No need of labs tomorrow MACARIO GARCIA MD 07/29/16 1116: Attending MD Review Statement Attending Statement Attending MD Statement: examined this patient, discuss w/resident/PA/BOOKKEEPER, agreed w/resident/PA/BOOKKEEPER, reviewed EMR data (avail), discussed with nursing, amended to note Attending Assessment/Plan: Patient seen and examined, overall feeling better. Not requiring any oxygen anymore. Breathing has improved. Patient is requesting for a Nicorette gum. Vital Signs Date Time Temp Pulse Resp B/P Pulse O2 O2 Flow FiO2 Ox Delivery Rate 07/29 0834 76 124/76 07/29 0800 Room Air 07/29 0659 97.8 76 18 124/76 91 Room Air 07/29 0200 97.6 62 18 118/76 93 CPAP 07/29 0147 71 92 07/28 2255 96.5 65 20 130/80 95 CPAP 2.0L 07/28 2129 60 98 07/28 2116 72 110/78 07/28 1900 97.6 93 18 128/60 92 Room Air 07/28 1538 97 Nasal 2.0L Cannula 07/28 1348 98.8 76 20 120/70 95 07/28 1151 Nasal 2.0L Cannula on exam; aox3, nad. cv; s1,s2, rrr. resp; clear abd; soft, nt, bs+ ext; no edema. no labs A/P; 30 y/o M with pmh sig for hypertension, insulin-dependent diabetes mellitus , dyslipidemia, hep C, bipolar disorder, anxiety and depression admitted with community acquired pneumonia, acute alcohol Intoxication, worsening depression, anxiety as well as suicidal ideation. Continue current antibiotics. We will follow-up on cultures. Patient is requesting Nicorette gum. CIWA scores are running low therefore will a per the scheduled Ativan. Continue when necessary Ativan. Continue multivitamin, folate and thiamine. Follow-up psych consult. Please resume home medication metformin. DVT px: Lovenox. Continue 1:1 sitter.
--- NOTE | 2016-07-29 12:54 | Cons- Psychiatry ---
ANG GRANGER APRN 07/29/16 1238: Psychiatric Consult Date of Consult: 07/29/16 Reason for Consult: "bipolar, SI" [Note: The patient admits that he tried to commit suicide with plan and intent. He sat in his truck with the leaky exhaust system with the engine running. Attempt aborted when his friend found him after approx. 5 minutes, had the patient turn the truck off. The patient then called 211 or 911.] History of Present Illness: 30 M BIBA from home on PEER on 07/27/16 @2013 with CC of non-command auditory hallucinations for 7-10 days. Patient had attempted suicide by asphyxiation. Carboxyhemoglobin 12.8 on admission; patient started on NRB. He is being treated for pneumonia. The patient had previously been followed at [facility], but was discharged in 2011. Allergies: Coded Allergies: NO KNOWN ALLERGIES (06/25/15) Current Medications: Current Medications Sig/Christopher Start time Last Medication Dose Route Stop Time Status Admin Acetaminophen 650 MG Q6P PRN 07/28 0800 AC PO Albuterol Sulfate 2 PUF Q4P PRN 07/28 1200 AC INH Amoxicillin/ 875 MG Q12 07/30 1000 AC Clavulanate Potassium PO Amoxicillin/ 875 MG Q12 07/29 2200 DC Clavulanate Potassium PO Aripiprazole 15 MG QPM 07/28 2200 AC 07/28 PO 2115 Azithromycin 500 MG DAILY 07/29 1000 DC 07/29 Dextrose/Water 250 ML IV 1121 Ceftriaxone Sodium 1,000 MG DAILY 07/29 1000 DC 07/29 IV 0841 Enoxaparin Sodium 40 MG DAILY 07/28 1000 AC 07/29 SC 0836 Folic Acid 1 MG DAILY 07/28 1000 AC 07/29 PO 0836 Gemfibrozil 600 MG BID 07/28 1000 AC 07/29 PO 0835 Hydromorphone HCl 0.5 MG Q4P PRN 07/28 0800 AC IV Insulin Aspart 4 UNITS ONCE ONE 07/28 2330 DC 07/28 SC 07/28 2331 2325 Insulin Aspart 0 TIDAC 07/28 0800 AC 07/29 SC 1646 Ketorolac 15 MG Q6P PRN 07/28 0800 AC Tromethamine IV Lamotrigine 100 MG BID 07/28 1000 AC 07/29 PO 0842 Lorazepam 0 Q1P PRN 07/29 1645 AC 07/29 IV 1647 Lorazepam 1 MG Q8 07/29 1400 AC 07/29 PO 1414 Lorazepam 1 MG Q6 07/28 1200 DC 07/29 PO 0642 Lorazepam 0 Q1P PRN 07/28 0800 DC IV Losartan Potassium 25 MG DAILY 07/28 1000 AC 07/29 PO 0834 Metformin HCl 1,000 MG 0800,1700 07/29 1700 AC 07/29 PO 1646 Methadone HCl 110 MG DAILY 07/28 1000 AC 07/29 PO 0827 Multivitamins 1 TAB DAILY 07/28 1000 AC 07/29 PO 0839 Nicotine 21 MG DAILY 07/29 1415 AC 07/29 TOP 1619 Nystatin 5 ML 4 TIMES/DAY 07/28 1000 AC 07/29 PO 1734 Patient Medication 1 ED .STK-MED ONE 07/29 1408 DC Teaching ED 07/29 1409 Prazosin HCl 1 MG QPM 07/28 2200 AC 07/28 PO 2116 Pregabalin 100 MG BID 07/28 1000 AC 07/29 PO 0835 Thiamine HCl 100 MG DAILY 07/28 1000 AC 07/29 PO 0836 Past History Past Medical History Neurological: NONE Cardiovascular: hypertension, hyperlipidemia Respiratory: SLEEP APNEA USES CPAP Gastrointestinal: GERD Hepatic: NONE Renal: NONE Musculoskeletal: NONE Psychiatric: bipolar disease, depression, IV drug abuse, opioid dependence, schizophrenia, substance abuse Endocrine: diabetes Blood Disorders: NONE Cancer(s): NONE SCHOOL PSYCHOMETRIST/Reproductive: NONE Past Surgical History Surgical History: R LEG FX CYSTS LANCED ON BACK, NECK AND R AXILLARY Psychosocial History Strengths/Capabilities: "I like to build things" Physical Limitations (Interventions): No functional disabilities at this time, however, the patient is on CPAP at night, requires IV antibiotics every 4 hours for a PICC in his left arm. Blood pressure, IV and lab draws on right arm, only, unless authorized. Psychiatric Treatment History Diagnosis: See below Risk Factors: history of suicide atmpts, SA/MH hospitalized, substance abuse, poor impulse control, male, limited support Assessment/Plan Mental Status Mental Status Exam: The patient is calm, sitting on his bed. He is oriented to person, place, but not day. He currently denies SI/HI. He denies AVTH, but reports that he has had been having auditory hallucinations for a few months. He reports that he saw his aunt in his bedroom room the other night, the first time this has happened. He denies she was reallt there. He reports racing thoughts that he cannot control, "They can happen anytime." He has times when he does not sleep for more than 2 hours about 3-4 X/year. The parient has been locking himself in his room for about a month, and did not shower for a month. He has been living at his aunt's house Lab Results: Laboratory Tests 07/28 Blood Gas Bicarbonate Actual (22 - 26 MEQ/L) 28 H Mixed VBG pH (7.31 - 7.41 PH) 7.35 Mixed VBG pCO2 (41 - 51 TORR) 51 Mixed VBG O2 Saturation (35 - 45 TORR) 70 H P-50 (Temp Corrected) N Oxyhemoglobin (94 - 100 %) 97.8 Carboxyhemoglobin (1.5 - 5.0 %) 2.0 Methemoglobin (0.0 - 3.0 %) 0.0 Calc Total Hemoglobin (13.5 - 18.0 %) 15.6 Oxygen Content (15 - 23 VOL%) 20.1 O2 Concentration % 100 O2 Delivery Method NRB Chemistry Sodium (137 - 145 mmol/L) 144 Potassium (3.5 - 5.1 mmol/L) 3.9 Chloride (98 - 107 mmol/L) 108 H Carbon Dioxide (22 - 30 mmol/L) 28 Anion Gap (5 - 16) 8 BUN (9 - 20 mg/dL) 10 Creatinine (0.7 - 1.2 mg/dL) 0.5 L Estimated GFR (>60 ml/min) > 60 BUN/Creatinine Ratio (7 - 25 %) 20.0 Glucose (65 - 99 mg/dL) 135 H Calcium (8.4 - 10.2 mg/dL) 8.7 Miscellaneous Phlebotomy Draw Site L HAND Serology HIV 1&2 Ab Western Blot (NONREACTIVE) NONREACTIVE Toxicology Urine Opiates Screen (>2000 NG/ML) < 100.00 Methadone Screen (>300 NG/ML) > 735 H Barbiturate Screen (>200 NG/ML) < 60 Ur Phencyclidine Scrn (>25 NG/ML) < 6.00 Amphetamines Screen (>1000 NG/ML) < 100 U Benzodiazepines Scrn (>200 NG/ML) < 85 Urine Cocaine Screen (>300 NG/ML) < 50 Urine Cannabis Screen (>50 NG/ML) > 80.00 H Urines Urine Color (YEL,AMB,STR) YEL Urine Clarity (CLEAR) CLEAR Urine pH (5.0 - 8.0) 6.0 Ur Specific [place] (1.001 - 1.035) <= 1.005 Urine Protein (NEG,<30 MG/DL) TRACE H Urine Ketones (NEG) NEG Urine Nitrite (NEG) NEG Urine Bilirubin (NEG) NEG Urine Urobilinogen (0.1 - 1.0 EU/dl) 0.2 Ur Leukocyte Esterase (NEG) NEG Ur Microscopic SEDIMENT EXAMINED Urine RBC (0 - 5 /HPF) 1-3 Urine WBC (0 - 2 /HPF) 1-3 H Ur Epithelial Cells (NONE,FEW) RARE Urine Mucus (FEW,NONE) RARE Urine Hemoglobin (NEG) NEG Urine Glucose (N MG/DL) >=1000 H 07/27 2020 Blood Gas Bicarbonate Actual (22 - 26 MEQ/L) 22 Mixed VBG pH (7.31 - 7.41 PH) 7.35 Mixed VBG pCO2 (41 - 51 TORR) 41 Mixed VBG O2 Saturation (35 - 45 TORR) 60 H Carboxyhemoglobin (1.5 - 5.0 %) 12.8 *H Calc Total Hemoglobin (13.5 - 18.0 %) 17.2 O2 Concentration % R/A Chemistry Sodium (137 - 145 mmol/L) 142 Potassium (3.5 - 5.1 mmol/L) 3.7 Chloride (98 - 107 mmol/L) 100 Carbon Dioxide (22 - 30 mmol/L) 24 Anion Gap (5 - 16) 17 H BUN (9 - 20 mg/dL) 8 L Creatinine (0.7 - 1.2 mg/dL) 0.6 L Estimated GFR (>60 ml/min) > 60 BUN/Creatinine Ratio (7 - 25 %) 13.3 Glucose (65 - 99 mg/dL) 362 H Calcium (8.4 - 10.2 mg/dL) 9.6 Total Bilirubin (0.2 - 1.3 mg/dL) 0.4 AST (17 - 59 U/L) 17 ALT (21 - 72 U/L) 31 Alkaline Phosphatase (< 127 U/L) 78 Total Protein (6.3 - 8.2 g/dL) 7.7 Albumin (3.5 - 5.0 g/dL) 4.5 Globulin (1.9 - 4.2 gm/dL) 3.2 Albumin/Globulin Ratio (1.1 - 2.2 %) 1.4 Hematology CBC w Diff NO MAN DIFF REQ WBC (4.8 - 10.8 /CUMM) 6.2 RBC (4.70 - 6.10 /CUMM) 5.77 Hgb (14.0 - 18.0 G/DL) 16.7 Hct (42 - 52 %) 48.9 MCV (80.0 - 94.0 FL) 84.7 MCH (27.0 - 31.0 PG) 29.0 RDW (11.5 - 14.5 %) 13.9 Plt Count (130 - 400 /CUMM) 305 MPV (7.4 - 10.4 FL) 7.2 L Gran % (42.2 - 75.2 %) 53.3 Lymphocytes % (20.5 - 51.1 %) 38.1 Monocytes % (1.7 - 9.3 %) 4.4 Eosinophils % (0 - 5 %) 3.5 Basophils % (0.0 - 2.0 %) 0.7 Absolute Granulocytes (1.4 - 6.5 /CUMM) 3.3 Absolute Lymphocytes (1.2 - 3.4 /CUMM) 2.4 Absolute Monocytes (0.10 - 0.60 /CUMM) 0.3 Absolute Eosinophils (0.0 - 0.7 /CUMM) 0.2 Absolute Basophils (0.0 - 0.2 /CUMM) 0 PUBS MCHC (33.0 - 37.0 G/DL) 34.2 Miscellaneous Phlebotomy Draw Site VENOUS Toxicology Serum Alcohol (<10 MG/DL) 197.0 Acetone Level (NEGATIVE) NEGATIVE Diffential Diagnosis: Alcohol use disorder, moderate Depressive D/O NOS R/O bipolar D/O Cannabis use disorder Hisotry of opiate dependence, currently on methadone maintenance History of cocaine abuse Impression: The patient was hospitalized 1-1/2 months ago at [facility] for suicidal ideation/attempt. He is in treatment at [facility] for methadone maintenance and mental health, and is involved in groups and is seen by a psychiatrist. The patient reports that his aunt will take him back into her house in [place] , but also states that he did not feel comfortable there, which he thinks was a trigger for his suicide attempt. Another stressor, is that his girlfriend, Louise, is due to be sentenced to chcf soon, and he is distressed at the thought of losing contact with her. "It's hard being alone." Insight poor; judgement poor. The patient called 211 or 911 after initiating suicide attempt, being rescued by a friend. Provisional Treatment Plan: The patient seen today, and is not currently suicidal. He denies current AVH. 1. Continue 1:1 sitter 2. Continue ETOH detox taper protocol. 3. The patient is not to leave the hospital AMA, or otherwise, unless cleared by psychiatry. 4. Verify and continue methadone maintenence. We will have other recommendations after review with the patient's truck driver's offsider at [facility]. He has given written permission to call them, but does not remember the name of his truck driver's offsider there. We will continue to follow along with you. Meggan Granger APRN, Pager [phone] ANNAMARIA ROGERS APRN 07/29/16 1610: Assessment/Plan Provisional Treatment Plan: PEC placed in chart for attending review, physical findings and signature. - Annamaria Rogers APRN
--- NOTE | 2016-07-29 16:30 | Discharge Summary ---
Visit Information Visit Dates Admission Date: 07/28/16 Discharge Date: 07/30/2016 Hospital Course Course Attending Physician: MACARIO GARCIA MD Primary Care Physician: ZEENAT MCRAE APRN [facility] Course: Patient is 30-year-old gentleman with past medical history of IV drug abuse, hep C, bipolar disease, anxiety, depression, insulin-dependent diabetes mellitus, hyperlipidemia, hypertension and polysubstance abuse on methadone came with auditory hallucinations and positive suicidal ideation, attempted suicide by asphyxiation, found to have bibasilar airspace disease significant for pneumonia and hypoxia to low 80s requiring supplemental oxygen. Vitals on admission temperature 97.3, pulse 106, respiratory rate 16, blood pressure 138/74 on room air Pertinent labs: Normal WBC count, H&H is stable normal chemistries, ABG revealed: Elevated carboxyhemoglobin levels(due to asphyxiation) Urine tox positive for cannabis, urinalysis benign HIV test negative. Chest x-ray:Right greater than left bibasilar airspace disease. While this could correspond to atelectasis, a developing infiltrate at the lateral right base cannot be excluded. Following problems were addressed while patient was on [facility]: 1. Community acquired pneumonia: Patient was started on IV ceftriaxone and azithromycin after sending the cultures. He remained afebrile, vitals were stable. Cultures came back negative and he was switched to by mouth Augmentin for total of 10 days. 2. Alcohol abuse with suicidal ideation: Patient was seen by psychiatry, required one-to-one sitter due to suicidal ideation. Received Ativan scheduled and as per [facility] protocol. By mouth thiamine, folate and vitamin B12 were continued. Patient was reevaluated by psych, recommended inpatient psychiatry as patient was at a risk of suicideagain. 3. History of hypertension and hyperlipidemia and diabetes, bipolar disease Home medications were continued 4.Diabetic diet Patient is full code Pharmacological DVT prophylaxis Allergies: Coded Allergies: NO KNOWN ALLERGIES (06/25/15) Disposition Summary Disposition Principal Diagnosis: Alcohol intoxication with suicidal attempt Additional Diagnosis: Community acquired pneumonia Discharge Disposition: [facility] ([facility]) Discharge Instructions General Discharge Information Code Status: Full Code Patient's Diet: Carbohydrate consistent diet Patient's Activity: As tolerated Follow-Up Instructions/Appts: Pt is being transferred to inpatient psychiatry unit Medications at Discharge Discharge Medications: Stop taking the following medications: Insulin Regular, Human (Humulin R U-500 Kwikpen) (Unknown Strength) INSULN.PEN Qty = 12 Continue taking these medications: OMEGA-3 ACID ETHYL ESTERS ([place]-3 Acid Ethyl Esters) 1 GRAM CAPSULE 2 Capsule ORAL TWICE DAILY Qty = 120 Comments: NOT GIVEN Pantoprazole Sodium (Pantoprazole Sodium) 40 MG TABLET.DR 1 Tablet ORAL DAILY BEFORE BREAKFAST Qty = 30 Comments: Last Taken:07/04/15 Time:6:30AM PRILOSEC GIVEN METFORMIN HCL (Metformin) 1,000 MG TAB 1 Tablet ORAL TWICE DAILY Comments: Last Taken:07/04/15 Time:5PM Brexpiprazole (Rexulti) 2 MG TAB 1 Tablet ORAL DAILY Comments: Last Taken:07/03/15 Time:9:30PM Lamotrigine (Lamictal 100MG) 100 MG TAB 1 Tablet ORAL TWICE DAILY Comments: Last Taken:07/04/15 Time:8:45AM B COMPLEX WITH VITAMIN C (Super B Complex With C) (Unknown Strength) CAP Unknown Dose Comments: NOT GIVEN Pregabalin (Lyrica) 100 MG CAP 1 Capsule ORAL TWICE DAILY Comments: Last Taken:07/04/15 Time:8:45AM Methadone HCl (Methadone HCl) 10 MG/1 ML ORAL.CONC 110 Milligram ORAL DAILY Aripiprazole (Abilify) 15 MG TABLET 1 Tablet ORAL Every night Qty = 30 Prazosin HCl (Prazosin HCl) 1 MG CAPSULE 1 Capsule ORAL Every night Qty = 30 Trazodone HCl (Trazodone HCl) 100 MG TABLET 1 Tablet ORAL Every night Qty = 30 Losartan Potassium (Cozaar) 25 MG TABLET 1 Tablet ORAL DAILY Gemfibrozil (Gemfibrozil) 600 MG TABLET 1 Tablet ORAL TWICE DAILY Start taking the following new medications: Amoxicillin/Clavulanate Potass (Amox-Clav 875-125 MG Tablet) 875 MG-125 MG TABLET 875 Milligram ORAL EVERY 12 HOURS Days = 5 No Refills Insulin Aspart (Novolog) 100 UNIT/ML VIAL 0 Units Inject into fatty tissue 3 TIMES DAILY BEFORE MEALS Days = 30 No Refills Instructions: BEFORE MEALS Blood Insulin Sugar Units < 150 NO COVERAGE 151-200 2 201-250 4 251-300 6 301-350 8 351-400 10 >400 12 & Call Doctor Melatonin (Melatonin) 3 MG TABLET 1 Tablet ORAL Every night Qty = 30 No Refills Nystatin (Nystatin) 100,000 UNIT/ML ORAL.SUSP 5 Milliliters ORAL 4 TIMES A DAY Days = 5 No Refills Albuterol Sulfate (Ventolin Hfa) 90 MCG HFA.AER.AD 2 Puff Inhale through mouth EVERY 4 HOURS NEEDED as needed for WHEEZING Days = 30 No Refills Sitagliptin Phosphate (Januvia) 100 MG TABLET 100 Milligram ORAL DAILY Days = 30 No Refills Folic Acid (Folic Acid) 1 MG TABLET 1 Milligram ORAL DAILY Days = 30 No Refills Thiamine HCl (Vitamin B-1) 100 MG TABLET 100 Milligram ORAL DAILY Days = 30 No Refills Multivitamin (One Daily Multivitamin) 1 EACH TABLET 1 Tablet ORAL DAILY Days = 30 No Refills Copies To: ZEENAT MCRAE APRN
[2016-07-30 02:00] VITALS: BP 120/70
[2016-07-30 02:32] VITALS: BP 120/70
[2016-07-30 05:56] VITALS: BP 100/66
[2016-07-30 06:00] VITALS: BP 100/66
--- NOTE | 2016-07-30 07:25 | PN- Housestaff ---
LIDIA GIVENS,EVERTON 07/30/16 0725: Subjective Follow-up For: Alcohol abuse Community-acquired pneumonia Complaints: no complaints Subjective: Patient seen and examined at bedside, states he slept well overnight. Offers no complaints. CIWA scores have been 0. Review of Systems Constitutional: Reports: see HPI. Objective Last 24 Hrs of Vital Signs/I&O Vital Signs Date Time Temp Pulse Resp B/P Pulse O2 O2 Flow FiO2 Ox Delivery Rate 07/30 0556 97.1 70 20 100/66 97 Room Air 07/30 0232 97.1 80 20 120/70 96 Room Air 07/30 0120 95 07/29 2310 68 94 07/29 2200 98.3 87 18 100/60 07/29 2130 98.3 87 20 100/60 96 Room Air 07/29 2120 90 110/64 07/29 1600 Room Air 07/29 1423 98.6 77 20 122/72 96 07/29 1144 98.4 77 20 120/80 96 07/29 0834 76 124/76 07/29 0800 Room Air Intake & Output 07/30 0800 07/30 0000 07/29 1600 Intake Total 600 600 Output Total Balance 600 600 Intake, Oral 600 600 Physical Exam General Appearance: Alert, Oriented X3, Cooperative, No Acute Distress HEENT: Atraumatic, PERRLA Cardiovascular: Regular Rate, Normal S1, Normal S2 Lungs: Clear to Auscultation, Normal Air Movement Abdomen: Normal Bowel Sounds, Soft, No Tenderness Extremities: No Clubbing, No Cyanosis, No Edema Current Medications: Current Medications Sig/Christopher Start time Last Medication Dose Route Stop Time Status Admin Acetaminophen 650 MG Q6P PRN 07/28 0800 AC PO Albuterol Sulfate 2 PUF Q4P PRN 07/28 1200 AC INH Amoxicillin/ 875 MG Q12 07/30 1000 AC Clavulanate Potassium PO Amoxicillin/ 875 MG Q12 07/29 2199 DC Clavulanate Potassium PO Aripiprazole 15 MG QPM 07/28 2200 AC 07/29 PO 2120 Azithromycin 500 MG DAILY 07/29 1000 DC 07/29 Dextrose/Water 250 ML IV 1121 Ceftriaxone Sodium 1,000 MG DAILY 07/29 1000 DC 07/29 IV 0841 Enoxaparin Sodium 40 MG DAILY 07/28 1000 AC 07/29 SC 0836 Folic Acid 1 MG DAILY 07/28 1000 AC 07/29 PO 0836 Gemfibrozil 600 MG BID 07/28 1000 AC 07/29 PO 2119 Hydromorphone HCl 0.5 MG Q4P PRN 07/28 0800 AC IV Insulin Aspart 0 TIDAC 07/28 0800 AC 07/29 SC 1646 Ketorolac 15 MG Q6P PRN 07/28 0800 AC Tromethamine IV Lamotrigine 100 MG BID 07/28 1000 AC 07/29 PO 2119 Lorazepam 1 MG Q12 07/30 2200 UNVr PO Lorazepam 0 Q1P PRN 07/29 1645 AC 07/29 IV 1647 Lorazepam 1 MG Q8 07/29 1400 DC 07/30 PO 0653 Lorazepam 1 MG Q6 07/28 1200 DC 07/29 PO 0642 Lorazepam 0 Q1P PRN 07/28 0800 DC IV Losartan Potassium 25 MG DAILY 07/28 1000 AC 07/29 PO 0834 Metformin HCl 1,000 MG 0800,1700 07/29 1700 AC 07/29 PO 1646 Methadone HCl 110 MG DAILY 07/28 1000 AC 07/30 PO 0654 Multivitamins 1 TAB DAILY 07/28 1000 AC 07/29 PO 0839 Nicotine 21 MG DAILY 07/29 1415 AC 07/29 TOP 1619 Nystatin 5 ML 4 TIMES/DAY 07/28 1000 AC 07/29 PO 2120 Patient Medication 1 ED .STK-MED ONE 07/29 1408 DC Teaching ED 07/29 1409 Prazosin HCl 1 MG QPM 07/28 2200 AC 07/29 PO 2120 Pregabalin 100 MG BID 07/28 1000 AC 07/29 PO 2120 Thiamine HCl 100 MG DAILY 07/28 1000 AC 07/29 PO 0836 Orders CIWA Score (last 24 hrs): 0,0,0,0,0,8 Assessment/Plan Assessment: 30-year-old gentlemananxiety, depression, insulin-dependent diabetes mellitus, hyperlipidemia, hypertension and polysubstance abuse on methadone came with a decreased hallucinations and positive suicidal ideation and found to have bibasilar airspace disease significant for pneumonia and hypoxia to low 80s requiring supplemental oxygen. He is currently on an Ativan taper doing well, and on Augmentin. Cultures thus far have been negative. Assessment- 1. Hypoxic respiratory failure secondary to community-acquired pneumonia 2. Alcohol abuse 3. Hypertension 4. Hyperlipidemia 5. History of diabetes Plan- Continue Augmentin Continue Ativan taper, today will taper down to 1 every 12, he has not required when necessary Ativan since yesterday evening CIWA score continues to be 0 Continue one-to-one sitter, at present he denies any suicidal ideations, however will defer need for sitter to psychiatry Continue antihypertensives Continue statin His blood sugars are elevated despite being on metformin and sliding scale insulin, will likely add Lantus for better control Pending psych eval today Problem List: 1. Pneumonia 2. Alcohol intoxication Pain Ratin Pain Location: none Pain Goal: Remain pain free Pain Plan: per emr Tomorrow's Labs & Rationales: none RADHA GIVENS,MACARIO 07/30/16 1149: Attending MD Review Statement Attending Statement Attending MD Statement: examined this patient, discuss w/resident/PA/CRM DEVELOPER, agreed w/resident/PA/CRM DEVELOPER, reviewed EMR data (avail), discussed with nursing, discussed with case mgmt, amended to note Attending Assessment/Plan: Patient seen and examined, feels much better. breathing has improved. Courtenay anxious last night. Vital Signs Date Time Temp Pulse Resp B/P Pulse O2 O2 Flow FiO2 Ox Delivery Rate 07/30 0939 80 126/64 07/30 0600 97.1 70 20 100/66 02 0556 97.1 70 20 100/66 97 Room Air 07/30 0232 97.1 80 20 120/70 96 Room Air 07/30 0200 97.1 80 20 120/70 / 0120 95 07/29 2310 68 94 07/29 2200 98.3 87 18 100/60 07/29 2130 98.3 87 20 100/60 96 Room Air 07/29 2120 90 110/64 07/29 1600 Room Air 07/29 1423 98.6 77 20 122/72 96 on exam; aox3, nad. cv; s1,s2, rrr. resp; clear. abd; soft, nt, bs+ ext; no edema. Laboratory Tests 07/30 930 Chemistry Hemoglobin A1c Pending A/P; 30 y/o M with pmh sig for hypertension, insulin-dependent diabetes mellitus , dyslipidemia, hep C, bipolar disorder, anxiety and depression admitted with community acquired pneumonia, acute alcohol Intoxication, worsening depression, anxiety as well as suicidal ideation. Patient overall doing better. Antibiotics have been switched to oral. Patient seen by psychiatry and they recommended inpatient psych admission which patient agrees to. Continue Ativan taper. Secondary to having hyperglycemia and high hemoglobin A1c, we have added Januvia to the patient's regimen in addition to his metformin. He will be continued on sliding scale insulin as well. Patient is medically stable for discharge to Inpatient Psychiatry history.
--- NOTE | 2016-07-30 09:33 | Patient Discharge Instructions ---
Discharge Instructions General Discharge Information You were seen/treated for: ALCOHOL DETOX +SI You had these procedures: NONE Diet Continue normal diet: Yes Recommended Diet: Diabetic Acute Coronary Syndrome Inclusion Criteria At DC or during hospital stay patient has or had the following: ACS DIAGNOSIS No Discharge Core Measures Meds if any: Prescribed or Continued at Discharge Meds if any: NOT Prescribed or Continued at Discharge Congestive Heart Failure Inclusion Criteria At DC or during hospital stay patient has or had the following: CHF DIAGNOSIS No Discharge Core Measures Meds if any: Prescribed or Continued at Discharge Meds if any: NOT Prescribed or Continued at Discharge Cerebrovascular accident Inclusion Criteria At DC or during hospital stay patient has or had the following: CVA/TIA Diagnosis No Discharge Core Measures Meds if any: Prescribed or Continued at Discharge Meds if any: NOT Prescribed or Continued at Discharge Venous thromboembolism Inclusion Criteria VTE Diagnosis No VTE Type NONE VTE Confirmed by (Test) NONE Discharge Core Measures - Per Current guidelines, there needs to be overlap - treatment for the first 5 days of Warfarin therapy. - If discharged on Warfarin prior to 5 days of - overlap therapy, the patient will need to be - assessed for post discharge needs including - *Post discharge parental anticoagulation - *Warfarin and/or parental anticoagulation education - *Follow up date to check INR post discharge At least 5 days overlap therapy as Inpatient No Meds if any: Prescribed or Continued at Discharge Note: Overlap Therapy is Warfarin and Anticoagulant Meds if any: NOT Prescribed or Continued at Discharge
[2016-07-30] MEDS ORDERED: FOLIC ACID1 M1 PO (09:36)
[2016-07-30] MEDS ORDERED: AMOX-CLAV 875-1 EACH PO ×2 (09:36→10:46)
[2016-07-30] MEDS ORDERED: JANUVIA100 M1 PO (09:36)
[2016-07-30] MEDS ORDERED: NYSTATIN100000 UNI PO (09:36)
[2016-07-30] MEDS ORDERED: VENTOLIN HFA18 GM INH (09:36)
[2016-07-30] MEDS ORDERED: VITAMIN B-1100 MG PO (09:36)
[2016-07-30] MEDS ORDERED: ONE DAILY MULT1 EAC2 PO (09:36)
[2016-07-30] MEDS ORDERED: MELATONIN3 M4 PO (10:46)
[2016-07-30] MEDS ORDERED: NOVOLOG100 UNIT/2 SC ×2 (10:47→10:50)
[2016-07-30] MEDS ORDERED: LORAZEPAM1 M1 PO (11:23)
[2016-07-30] MEDS ORDERED: NICOTINE PATCH1 EAC3 TOP (11:23)
[2016-07-30 12:09] VITALS: BP 120/72
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
[2016-07-30 14:15] VITALS: BP 128/66
== END 2016-07-30 16:12 | DRG 139 ==
LOC: ENRESERVDT → ENRESERVTM → ERH 20:02 → ENPENDDIS 07-28 06:26 → 2NA 07-28 06:26 → ERHI 07-28 06:26 → EDBEDREQSVC 07-28 07:02 → EDBEDREQ 07-28 07:02 → EDBEDREQTM 07-28 07:02 → 2NA 07-28 08:37
PROVIDERS: Pediatrics; ADMIT Internal Medicine
DX: J18.9 Pneumonia, unspecified organism (principal); R45.851 Suicidal ideations; F10.129 Alcohol abuse with intoxication, unspecified; F11.20 Opioid dependence, uncomplicated; B18.2 Chronic viral hepatitis C; T58.02XA Toxic effect of carbon monoxide from motor vehicle exhaust, intentional self-harm, initial encounter; I10 Essential (primary) hypertension; F31.9 Bipolar disorder, unspecified; E78.5 Hyperlipidemia, unspecified; E11.8 Type 2 diabetes mellitus with unspecified complications; F41.8 Other specified anxiety disorders
CPT/HCPCS: 2NAP; 80307; 81001; 87040; 87070; 87071; 87389; 87804; 87804-59; 93005; 93010; 96361; 96372; 96374; 99232; G0480; J0456; J0696; J1650; J1815; J3490; J7060

== ENCOUNTER 2016-07-30 09:47 | Inpatient (IN) | payer OTHER ==
[~2016-07-30] VITALS: Ht 165.1 cm; Wt 107.1 kg
[~2016-07-30 09:47] MED LIST changes: +AMOX-CLAV 875-1 EACH PO; +COZAAR25 M1 PO; +FOLIC ACID1 M1 PO; +GEMFIBROZIL600 M1 PO; +JANUVIA100 M1 PO; +NYSTATIN100000 UNI PO; +ONE DAILY MULT1 EAC2 PO; +PRAZOSIN HCL1 M1 PO; +TRAZODONE HCL100 M1 PO; +VENTOLIN HFA18 GM INH; +VITAMIN B-1100 MG PO
[2016-07-30] MEDS ORDERED: MELATONIN3 M4 PO (10:46)
[2016-07-30] MEDS ORDERED: AMOX-CLAV 875-1 EACH PO (10:46)
[2016-07-30] MEDS ORDERED: NOVOLOG100 UNIT/2 SC ×2 (10:47→10:50)
[2016-07-30] MEDS ORDERED: NICOTINE PATCH1 EAC3 TOP (11:23)
[2016-07-30] MEDS ORDERED: LORAZEPAM1 M1 PO (11:23)
[2016-07-30 16:35] VITALS: BP 122/71
[2016-07-30 19:39] VITALS: BP 128/72
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
[2016-07-31 07:38] VITALS: BP 120/72
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
[2016-07-31 12:10] VITALS: BP 108/60
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
--- NOTE | 2016-07-31 14:40 | SOCIAL WORKER PROG NOTE PSYCH ---
Social Work Progress Note Progress Note Pt is overwhelmed, feels upset that his gf may be going to halfway, he also mentioned he may have some legal problems due to allegedly "extortion" from great aunts estate, he isn't too sure what he thinks this, but is fearful he states "if I have to go to halfway, I wont...I wont go". Pt was cooperative, has extensive trauma history, is trying to learn ways to not seek approval from his father who has not been helpful or supportive in past.
--- NOTE | 2016-07-31 15:16 | PN- Att Addend ---
Attending Addendum Attending Brief Note Patient seen and examined, overall feeling better. Denies any shortness of breath. He has been using his CPAP at night. Vital Signs Date Time Temp Pulse Resp B/P Pulse O2 O2 Flow FiO2 Ox Delivery Rate 07/31 1210 82 108/60 07/31 0810 97.1 94 120/72 07/31 0738 97.1 94 120/72 / 0130 69 92 / 2319 86 99 / 2223 80 128/72 02 1939 97.9 80 128/72 02/ 1635 95 122/71 on exam; aox3, nad. cv; s1,s2, rrr. resp; clear abd; soft, nt, bs+ ext; no edema. Laboratory Tests 07/31 07/31 0610 0610 Chemistry Hemoglobin A1c Pending Triglycerides (<150 mg/dL) 268 H Cholesterol (< 200 MG/DL) 204 H LDL Cholesterol, Calc (65 - 129 mg/dL) 108 HDL Cholesterol (40 - 60 mg/dL) 43 Cholesterol/HDL Ratio (0.00 - 4.88 %) 5 H TSH &T3 &Free T4 Intrp (0.27 - 4.20 uIU/mL) 2.040 A/P; 30 y/o M with pmh sig for hypertension, insulin-dependent diabetes mellitus , dyslipidemia, hep C, bipolar disorder, anxiety and depression admitted with community acquired pneumonia, acute alcohol Intoxication, worsening depression, anxiety as well as suicidal ideation. Patient has been transferred to Inpatient Psychiatry for the suicidal ideation. He is on Ativan taper. I will leave the rest of the psych management per psychiatrist. Noted that he has high total cholesterol as well as triglycerides. Being a diabetic, his LDL should also be lower than 100 if not lower than 70. He is on Lopid, I will add a statin. Secondary to having hyperglycemia and high hemoglobin A1c, we have added Januvia to the patient's regimen in addition to his metformin. Please continue to check Accu-Cheks. Please add sliding scale insulin if his Accu checks are running high. Continue other current mx.
[2016-07-31 15:57] VITALS: BP 121/62
[2016-07-31 20:08] VITALS: BP 142/73
--- NOTE | 2016-07-31 20:15 | Cons- Endocrinology ---
General Information and HPI Consulting Request Date of Consult: 07/31/16 Requested By: Dr Prescott Reason for Consult: uncontrolled diabetes and abnormal thyroid tests Source of Information: patient, old records Exam Limitations: no limitations History of Present Illness: This 30 yo male has a four year history type 2. He states he has lost about 120 pounds of weight over the past several years. He was on insulin at times but recently was not taking his medication for diabetes. At one time the patient was on Lantus 50 units twice a day and Novolog before meals. The patient does not have a previous diagnosis of thyroid disease . Thyroid tests nshoww TSH 4.42 and FT4 of 0.77. Allergies/Medications Allergies: Coded Allergies: NO KNOWN ALLERGIES (06/25/15) Home Med List: Albuterol Sulfate (Ventolin Hfa) 90 MCG HFA.AER.AD 2 PUF INH Q4P PRN WHEEZING Amoxicillin/Clavulanate Potass (Amox-Clav 875-125 MG Tablet) 875 MG-125 MG TABLET 875 MG PO Q12 PNEUMONIA Aripiprazole (Abilify) 15 MG TABLET 1 TAB PO QPM MENTAL HEALTH (Reported) Brexpiprazole (Rexulti) 2 MG TAB 1 TAB PO DAILY MENTAL HEALTH (Reported) Folic Acid 1 MG TABLET 1 MG PO DAILY SUPPLEMENT Gemfibrozil 600 MG TABLET 1 TAB PO BID HIGH CHOLESTROL (Reported) Insulin Aspart (Novolog) 100 UNIT/ML VIAL 0 UNITS SC TIDAC diabetes BEFORE MEALS Blood Insulin Sugar Units < 150 NO COVERAGE 151-200 2 201-250 4 251-300 6 301-350 8 351-400 10 >400 12 & Call Doctor Lamotrigine (Lamictal 100MG) 100 MG TAB 1 TAB PO BID DEPRESSION (Reported) Lorazepam 1 MG TABLET 1 MG PO Q12 taper last dose on 07/31/16 in AM Losartan Potassium (Cozaar) 25 MG TABLET 1 TAB PO DAILY HIGH BLOOD PRESSURE ( Reported) Melatonin 3 MG TABLET 1 TAB PO QPM sleep METFORMIN HCL (Metformin) 1,000 MG TAB 1 TAB PO BID DIABETES (Reported) Methadone HCl 10 MG/1 ML ORAL.CONC 110 MG PO DAILY HERION (Reported) Multivitamin (One Daily Multivitamin) 1 EACH TABLET 1 TAB PO DAILY SUPPLEMENT Nicotine (Nicotine Patch) 21 MG/24 HOUR PATCH.TD24 21 MG TOP DAILY smoking cessation Nystatin 100,000 UNIT/ML ORAL.SUSP 5 ML PO 4 TIMES/DAY THRUSH [place]MEGA-3 ACID ETHYL ESTERS ([place]-3 Acid Ethyl Esters) 1 GRAM CAPSULE 2 CAP PO BID CHOLESTEROL (Reported) Pantoprazole Sodium 40 MG TABLET.DR 1 TAB PO DAILY AC ACID REFLUX (Reported) Prazosin HCl 1 MG CAPSULE 1 CAP PO QPM PER PT (Reported) Pregabalin (Lyrica) 100 MG CAP 1 CAP PO BID NERVE PAIN (Reported) Sitagliptin Phosphate (Januvia) 100 MG TABLET 100 MG PO DAILY DIABETES Thiamine HCl (Vitamin B-1) 100 MG TABLET 100 MG PO DAILY SUPPLEMENT Trazodone HCl 100 MG TABLET 1 TAB PO QPM SLEEP (Reported) Past History Medical History Neurological: NERVE PAIN EENT: NONE Cardiovascular: hypertension, hyperlipidemia Respiratory: pneumonia, SLEEP APNEA USES CPAP ASTHMA? Gastrointestinal: GERD Hepatic: HEP C? Renal: NONE Musculoskeletal: NONE Psychiatric: alcohol dependence, anxiety, bipolar disease, depression, IV drug abuse, opioid dependence, schizophrenia, substance abuse Endocrine: diabetes Blood Disorders: NONE Cancer(s): NONE HOSE CEMENTER/Reproductive: NONE Surgical History Surgical History: R LEG FX CYSTS LANCED ON BACK, NECK AND R AXILLARY Family History Relations & Conditions If Any: MOTHER FH: depression FH: diabetes mellitus FHx: seizures Psychosocial History Where Do You Live? Home Functional Ability ADLs Independent: dressing, eating, toileting, bathing. Ambulation: independent Employment History Employment: Unemployed Exam & Diagnostic Data Last 24 Hrs of Vital Signs/I&O Vital Signs Date Time Temp Pulse Resp B/P Pulse O2 O2 Flow FiO2 Ox Delivery Rate 07/31 1557 86 121/62 07/31 1210 82 108/60 / 0810 97.1 94 120/72 07/31 0738 97.1 94 120/72 07/31 0130 69 92 07/30 2319 86 99 07/30 2223 80 128/72 Intake & Output / 1600 02/ 0800 07/31 0000 Intake Total Output Total Balance Patient 236 lb Weight Vital Signs Date Time Temp Pulse Resp B/P Pulse O2 O2 Flow FiO2 Ox Delivery Rate 07/31 1557 86 121/62 02/02 1210 82 108/60 02/02 0810 97.1 94 120/72 07/31 0738 97.1 94 120/72 07/31 0130 69 92 07/30 2319 86 99 07/30 2223 80 128/72 Intake & Output 07/31 1600 07/31 0800 07/31 0000 Intake Total Output Total Balance Patient 236 lb Weight Physical Exam General Appearance: alert, awake, comfortable Head: normal appearance Neck: normal inspection Respiratory: normal breath sounds Cardiovascular: regular rate/rhythm Gastrointestinal: normal bowel sounds Extremities: normal inspection Labs/Javed Results: Laboratory Tests 07/31 07/31 0610 0610 Chemistry Hemoglobin A1c Pending Triglycerides (<150 mg/dL) 268 H Cholesterol (< 200 MG/DL) 204 H LDL Cholesterol, Calc (65 - 129 mg/dL) 108 HDL Cholesterol (40 - 60 mg/dL) 43 Cholesterol/HDL Ratio (0.00 - 4.88 %) 5 H TSH &T3 &Free T4 Intrp (0.27 - 4.20 uIU/mL) 2.040 Assessment/Plan Assessment/Plan The patients blood sugar ias out of control. His HBA!C is 12.2%. I would palce him on Levemir 10 units twice a day and adjust the patient sliding scale Novolog. We can also add metformin. The patients abmnormal thyroid tests are probably due to sick euthyroid. We should check thyroid antibodies. Consult Acknowledgment - Thank you for your consult request.
[2016-08-01 07:36] VITALS: BP 121/63
[2016-08-01 12:14] VITALS: BP 133/68
--- NOTE | 2016-08-01 13:05 | CP SOUTH PROGRESS NOTE PSYCH ---
Psych (Inpt) Progress Note Progress Note Include the following elements, when applicable: Involvement in the active treatment of the patient with behavioral observations of the patient and the patient's response to the treatment. Review of the ongoing treatment process in the context of the treatment plan. Indication of how multi-disciplinary staff members are carrying out the treatment plan. Plans for future interventions and recommendations for revision of the treatment plan. Liaison with other physicians/providers. Progress Note: [I discussed this patient's progress to date, current mental status, treatment process in the context of the treatment plan, and discharge planning with staff/ team in the daily morning inpatient team meeting. I also met with the patient myself in individual session.] SUBJECTIVE: "I feel a lot better today." OBJECTIVE: Current Medications Sig/Christopher Start time Last Medication Dose Route Stop Time Status Admin Acetaminophen 650 MG Q6P PRN 07/30 1200 AC PO Al Hydroxide/Mg 30 ML Q4-6 PRN PRN 07/30 1215 AC Hydroxide PO Albuterol Sulfate 2 PUF Q6P PRN 07/30 1145 AC INH Amoxicillin/ 875 MG Q12 07/30 2200 AC 08/01 Clavulanate Potassium PO 08/08 2201 0819 Atorvastatin Calcium 20 MG 1700 07/31 1700 AC 07/31 PO 2010 Brexpiprazole 3 MG DAILY 08/02 1000 AC PO Brexpiprazole 2 MG DAILY 07/31 1000 DC 08/01 PO 0822 Fish Oil 2,100 MG BID 07/30 2200 AC 08/01 PO 0821 Fluoxetine HCl 20 MG DAILY 07/30 1205 AC 08/01 PO 1000 Folic Acid 1 MG DAILY 07/31 1000 AC 08/01 PO 0820 Gemfibrozil 600 MG BID 07/30 2200 AC 08/01 PO 0819 Hydroxyzine HCl 50 MG Q6P PRN 07/30 2045 AC 08/01 PO 1024 Insulin Aspart 0 TIDAC/HS 07/31 2100 AC 08/01 SC 1220 Insulin Aspart 0 TIDAC 07/30 1200 DC 07/31 SC 1712 Insulin Detemir 10 UNITS BID 07/31 2200 AC 08/01 SC 1018 Lamotrigine 100 MG BID 07/30 2200 AC 08/01 PO 0822 Lorazepam 0.5 MG 0800 08/02 0800 UNVr PO 08/02 0801 Lorazepam 0.5 MG 22008/01 2200 UNVr PO 08/01 220 Lorazepam 0.5 MG 1000,2200 07/31 2200 DC / PO 08/06 2159 0823 Losartan Potassium 25 MG DAILY 07/31 1000 AC 08/01 PO 0820 Magnesium Hydroxide 30 ML AT BEDTIME PRN 07/30 1215 AC PO Metformin HCl 1,000 MG 0800,1700 02/ 1700 AC 08/01 PO 0819 Methadone HCl 100 MG 0600 08/01 0600 AC 08/01 PO 0615 Multivitamins 1 TAB DAILY 07/31 1000 AC 08/01 PO 0821 Nicotine 2 MG Q2P PRN 07/31 1230 AC 08/01 PO 1023 Nicotine 21 MG DAILY 07/31 1000 AC 08/01 TOP 0820 Nystatin 5 ML 4 TIMES/DAY 07/30 1400 AC 08/01 PO 1000 Omeprazole 40 MG DAILY AC 07/30 1205 AC 08/01 PO 0615 Prazosin HCl 1 MG AT BEDTIME 07/30 2200 AC 07/31 PO 2138 Pregabalin 100 MG BID 07/30 2200 AC 08/01 PO 0830 Sitagliptin Phosphate 100 MG DAILY 07/31 1000 AC 08/01 PO 0819 Thiamine HCl 100 MG DAILY 07/31 1000 AC 08/01 PO 0820 Trazodone HCl 50 MG AT BEDTIME 07/31 2200 AC 07/31 PO 2138 Trazodone HCl 50 MG AT BEDTIME PRN 07/31 1245 AC PO Vital Signs Date Time Temp Pulse Resp B/P Pulse O2 O2 Flow FiO2 Ox Delivery Rate 08/01 1214 94 133/68 08/01 0820 97.8 92 121/63 08/01 0736 97.8 92 121/63 08/01 0247 87 92 07/31 2250 62 93 07/31 2137 97.6 90 142/73 07/31 2007 97.6 90 142/73 07/31 1557 86 121/62 ASSESSMENT: Chart, progress notes, VS, labs, FS, and medication list reviewed. Endocrine consult reviewed and appreciated. Met with patient today, he presented A&Ox4. Affect was full-range. Mood appeared less anxious. No evidence of psychomotor retardation noted, since yesterday. Speech was normal, in rate tone and volume. No slurring of words today. Patient reported having a positive visit with his "uncle Bill" and reported speaking to his aunt by phone yesterday. He reported continued racing thoughts, but could not elaborate on content of thoughts. He reported anxiety of 8/10 (10 being the worst) and depression of 2-3 /10 (10 being the worst). He denied feeling hopeless, helpless, worthless, and guilty. He denied active and passive suicidal ideation, plans and intent. He denied homicidal ideation. He denied auditory and visual hallucinations. He reported sleeping well, denied NMA. Reported appetite as good. Patient reported tolerating descreased doses of Methadone from 110mg QD to 100mg QD; Ativan 1mg BID to 0.5mg BID; and Trazodone 100mg QHS to 50mg QHS well. He reported experiencing some diarrhea likely related to decreased Methadone dose. Will order Lomotil 2.5mg BID prn. Patient agreeable to increasing Rexulti from 2mg to 3mg to target racing thoughts. PLAN: 1. Continue monitoring the patient on unt for safety and mood. 2. Increase Rexulti from 2mg to 3mg daily for racing thoughts/mood stabilization. 3. Continue other medications. 4. Continue Ativan taper as ordered. 5. Start Lomotil 2.5mg BID prn for diarrhea, likely secondary to decrease in MMT. 6. Levemir 10unit BID added and Novolog SS adjusted per Dr. Ferraro. 7. Thyroid antibodies ordered per Dr. Ferraro, given abnormal thyroid tests liekly d/t to sick euthyroid. 8. Continue to offer prn Atarax for anxiety. 9. Dispo planning per primary team.
[2016-08-01 15:52] VITALS: BP 113/60
--- NOTE | 2016-08-01 16:11 | SOCIAL WORKER PROG NOTE PSYCH ---
Social Work Progress Note Progress Note Wayne talked about how he started drinking a few months ago and wasn't taking his meds consistently. [place] that everything was just coming down on him and that he couldn't take it anymore. Talked about arguments with his Great Aunt, not being on meds, and just feeling sorry for himself were triggers to self harm behaviors. Apparently Wayne has gotten in his vehicle 3x's over the past few months with intentions to kill himself by carbon monoxide poisoning. He said that the first couple of times he did come into the ER, but played it off as nothing and went home. 1 ER visit was to [place] and 1 was in [place]. During 1 of the episodes he turned the vehicle off himself. He has mixed feelings about his friend finding him this time. He said that sometimes he has thoughts that he wishes the friend never found him and others he feels ok with how it happened. He reports feeling better today, with no SI. His long time girlfriend/ fiance went to long-term a week- 2 weeks ago, due to violation of probation. He isn't sure how long she will be in and said it could be up to 3 years. He misses her and views that as a loss. There are 3 guys living at the Great Aunt's home with him. He said they were supposed to be there temporarily, but they haven't left yet. He reports them to be drinkers. He did sign a release for me to speak with his Great Aunt Columba, she is 84 years old. He talked about needing a VNS service again. In the past he has used [facility]. He couldn't recall why they stopped coming. He is going to [facility] daily for Methadone and a group on Thursday. He couldn't recall the name of his counselor. He said he is thinking of doing IOP there. He has a legal matter that has been stressing him. He said that the state is accusing him of extortion of 80,000 from an Aunt. Not the Aunt whom he lives with. He has a precision lens generator, but he hasn't been able to get a hold of him recently. He denies stealing any of her money. 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 This Aunt apparently has Alzheimers, according to Wayne.
--- NOTE | 2016-08-01 16:39 | SOCIAL WORKER TX PLAN PSYCH ---
Treatment Plan - Please Document: - Evidence that there is ongoing collaboration between - the patient and the interdisciplinary team, - including the patient's active participation and - responsibility for engaging in the treatment regimen, - and that the treatment plan is individualized and - relevant to the patient's conditions. - Treatment plan should reflect documentation indicating - that all active therapeutic efforts are included. Strengths/Capabilities: "I like to build things" Physical Limitations (Interventions): No functional disabilities at this time, however, the patient is on CPAP at night, requires IV antibiotics every 4 hours for a PICC in his left arm. Blood pressure, IV and lab draws on right arm, only, unless authorized. Patient Identified Trmt Goals: "I need to get back to taking my meds consistently" Discharge Plan: Patient to discharge back home to Great Aunt's house with [facility] Nursing service for med administration. Attend IOP through [facility]. Problem/Goals #1 Problem #1: depression Goal (Short Term): Patient will attend 75% of groups on unit Goal (Care Home): Patient will verbalize future oriented thoughts and goals to work towards Interventions: Patient will be offered medication management with the ACCESS REPRESENTATIVE, groups on coping skills, symptom management, relaxation group, art therapy, focus group, goals group, accupuncture. Honey Processor will help patient identify goals and hopes for the future. Honey Processor will hold family meeting and coordinate with community provider to plan aftercare. Modalities: group/ individual Problem/Goals #2 Problem #2: polysubstance use Goal (Short Term): Patient will identify triggers to relpase Goal (Tram Inspector): Patient will identify a relapse prevention plan Interventions: patient will be offered AA on unit, groups on relapse prevention, coping skills. Honey Processor to explore AA/ NA and coordinate with community provider. Discuss pros and cons of continued use. DSM5/PS Stressors/Medical Prob Diagnosis' (DSM 5, Stressors, Medical): See below Treatment Team - Responsibilities of members of the treatment team include: - Medication Management- MD or ACCESS REPRESENTATIVE - Medication Administration and Monitoring- Nurse - Group Therapy- Occupational Therapist - 1:1 Therapy,Disch Planning,family involvement-Honey Processor
[2016-08-01 19:45] VITALS: BP 142/69
[2016-08-02 07:31] VITALS: BP 120/68
[2016-08-02 12:05] VITALS: BP 117/59
--- NOTE | 2016-08-02 12:41 | PN- Diabetes ---
Assessment/Plan Assessment: 30 y/o male with PMH significant for hypertension, diabetes mellitus, dyslipidemia, hep C, bipolar disorder, anxiety and depression, was admitted for community acquired pneumonia, acute alcohol intoxication, worsening depression, anxiety as well as suicidal ideation. Patient was transferred to Inpatient Psychiatry for the suicidal ideation. He was put on Levemir 10 units twice a day, Novolog coverage before meals and Novolog coverage at bedtime. His FSGs were 321, 176, 315, 198, 308 and 199. The patient does not have a previous diagnosis of thyroid disease . Thyroid tests done on 07/20/2016 showed TSH 4.42 and FT4 of 0.77. Thyroid antibody panel is pending. Plan: 1. increase Levemir to 12 units twice a day; 2. continue the current Novolog coverage before meals and Novolog coverage at bedtime; 3. monitor FSGs; 4. follow thyroid antibody panel and add-on TFT to this morning's lab. will follow. Subjective Subjective: He has no special complaints at this point. Objective Last 24 Hrs of Vital Signs/I&O Vital Signs Date Time Temp Pulse Resp B/P Pulse O2 O2 Flow FiO2 Ox Delivery Rate 08/02 1205 82 117/59 08/02 0908 72 120/68 / 0731 97.5 72 120/68 02/ 2257 79 97 02/ 2141 90 142/69 02/ 1945 97.3 90 142/69 02/03 1552 80 113/60 Findings Pertinent Lab/Javed Results: Laboratory Tests 08/02 0507 Immunology Thyroglobulin Antibody Pending Thyroid Peroxidase Ab Pending
--- NOTE | 2016-08-02 13:48 | CP SOUTH PROGRESS NOTE PSYCH ---
Psych (Inpt) Progress Note Progress Note Include the following elements, when applicable: Involvement in the active treatment of the patient with behavioral observations of the patient and the patient's response to the treatment. Review of the ongoing treatment process in the context of the treatment plan. Indication of how multi-disciplinary staff members are carrying out the treatment plan. Plans for future interventions and recommendations for revision of the treatment plan. Liaison with other physicians/providers. Progress Note: Stated that he was doing rather well; that he has highs and lows with his mood. Anxiety remains high at 10/10 this morning and couldnt sit still, but improved later today. Stated that he hears voices saying his name but not command. Levemir increased to 12 units bid today by endo. Tolerating rexulti well w/o issues. Endo labs pending. No other issues. MSE: young man, well groomed, pleasant and well related. No psychomotor agitation/retardation present. Mood is neutral, affect is full. His eye contact is good. Speech is normal. His thought process is goal directed. Thought content free of delusions. No thoughts to harm himself or anyone else, and denies any recent hallucinations, but has had them saying his name in the past. Not internally preoccupied. Insight good, judgment adequate. A: 30 y/o man w/ hx psychotic illness, s/p serious suicide attempt, aborted by a friendm, when he had AH, and attempted to sit in his truck w/ leaky exhaust system w/ engine running. He has since been stabilizing overall, does not appear grossly psychotic or disorganized, and mood appears to be improving. His risk factors of serious suicide attempt, trauma hx, psychiatric hx are mitigated w/ medicaiton, groups, mileu therapy; fair insight and accepting of tx. Plan: continue current plan of care. f/up w. endo recs.
[2016-08-02 15:39] VITALS: BP 125/68
[2016-08-02 19:15] VITALS: BP 120/60
[2016-08-03 07:37] VITALS: BP 120/75
[2016-08-03 12:11] VITALS: BP 117/65
--- NOTE | 2016-08-03 13:29 | CP SOUTH PROGRESS NOTE PSYCH ---
Psych (Inpt) Progress Note Progress Note Include the following elements, when applicable: Involvement in the active treatment of the patient with behavioral observations of the patient and the patient's response to the treatment. Review of the ongoing treatment process in the context of the treatment plan. Indication of how multi-disciplinary staff members are carrying out the treatment plan. Plans for future interventions and recommendations for revision of the treatment plan. Liaison with other physicians/providers. Progress Note: Said that last night he had a bad anxiety attack and feels that everyone is against me and that he still feels like that. Said that when he gets paranoid he becomes more isolative; that at home he was boarding windows b/c fear of people coming after him. States that he has no intention of protecting self while here, that it is more anxiety about what would happen if his paranoia was true; and that he would tell staff if he was having worsening paranoia. We discussed that his dose of rexulti was recently increased, that in addition to managing his paranoia, his depressive and anxiety sx can be managed w/ increasing prozac dosage, he was agreeable. MSE: young man, pleasant and well related. No movement d/o present. No psychomotor agitation/retardation present. Mood is neutral, affect is full. His eye contact is good. Speech is normal rate and rhythm. His thought process is goal directed. Thought content positive for statements of paranoia, that people are watching him or after him, in response he thinks whether he should prepare to defend self, but no actual planning; is able to reality test while here at least. No thoughts to harm himself or anyone else, and denies any recent hallucinations, stating they are improving overall. Does not appear suspicious or guarded. Not internally preoccupied. Insight good, judgment adequate. A: 30 y/o man w/ hx psychotic illness, s/p suicide attempt. He has since been stabilizing overall, does not appear grossly psychotic or disorganized, and mood appears to be improving, but does complain of paranoia remaining. He has some concerning risk factors of suicide attempt, paranoia w/ thoughts regarding whether to act on it or not in self defense; however he is able to reality test, engage in tx, groups, mileu therapy, and engage w/ staff, mitigating his acute risk. Reviewed tfts 08/02/16: TSH 1.73; Free T4 1.35; Total T3 1.52; thyroglobulin Ab < 15 (cuttoff <61); Thyroid peroxidase Ab 51 (neg, cutoff <61). Plan: increase prozac to 30mg orally daily to target anxiety and depressive sx. F/up if any endo recs.
--- NOTE | 2016-08-03 13:36 | PN- Diabetes ---
Assessment/Plan Assessment: 30 y/o male with PMH significant for hypertension, diabetes mellitus, dyslipidemia, hep C, bipolar disorder, anxiety and depression, was admitted for community acquired pneumonia, acute alcohol intoxication, worsening depression, anxiety as well as suicidal ideation. Patient was transferred to Inpatient Psychiatry for the suicidal ideation. Levemir was increased to 12 units twice a day. He is on Novolog coverage before meals and Novolog coverage at bedtime. His FSGs were 308, 199, 334, 233, 267 and 209. The patient does not have a previous diagnosis of thyroid disease . Thyroid tests done on 07/20/2016 showed TSH 4.42 and FT4 of 0.77. Repeat TSH 1.73, free T4 1.35 and TT3 1.52; anti TPO 51 and anti Tg < 15. Plan: 1. increase Levemir to 15 units twice a day; 2. adjust Novolog coverage before meals--detail see the inpatient DM order; 3. continue the current Novolog coverage at bedtime; 4. monitpr FSGs. will follow. Inpatient Diabetes Orders Before Each Meal: Bolus Insulin: Novolog < 80 mg/dl: no coverage 80-100 mg/dl: 6 units 101-120 mg/dl: 6 units 121-150 mg/dl: 6 units 151-200 mg/dl: 8 units 201-250 mg/dl: 10 units 251-300 mg/dl: 12 units 301-350 mg/dl: 14 units 351-400 mg/dl: 15 units > 400 mg/dl: 16 units Subjective Subjective: patient is taking a nap. Objective Last 24 Hrs of Vital Signs/I&O Vital Signs Date Time Temp Pulse Resp B/P Pulse O2 O2 Flow FiO2 Ox Delivery Rate 08/03 1211 71 117/65 08/03 0813 97.2 73 120/75 08/03 0737 97.2 73 120/75 08/03 0008 73 91 08/02 2204 87 120/60 08/02 1915 97.8 87 120/60 08/02 1539 77 125/68 Findings Pertinent Lab/Javed Results: Laboratory Tests 08/02 0507 Chemistry TSH (0.270 - 4.200 uIU/mL) 1.730 Free T4 (0.79 - 2.35 ng/dL) 1.35 Total T3 (0.97 - 1.69 ng/mL) 1.52 Immunology Thyroglobulin Antibody (< 61 U/mL) < 15 Thyroid Peroxidase Ab (< 61 U/mL) 51
[2016-08-03 15:46] VITALS: BP 144/64
[2016-08-03 19:42] VITALS: BP 134/66
[2016-08-04 07:56] VITALS: BP 141/77
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
--- NOTE | 2016-08-04 12:16 | IP INCIDENTAL NOTE PSYCH ---
Incidental Note Notation: left for [facility] in [place], [place] (#[phone]) to obtain clinical collateral from patient's outpatient psychiatric prescriber (name unknown by patient). Awaiting return phone call.
[2016-08-04 12:26] VITALS: BP 118/59
[2016-08-04 15:48] VITALS: BP 115/66
--- NOTE | 2016-08-04 16:49 | SOCIAL WORKER PROG NOTE PSYCH ---
Social Work Progress Note Progress Note Called Wayne's Great Aunt Columba and invited her in for a family meeting. She was able to come in for 1pm today. Informed Wayne of the meeting. Maryellen Merida APRN joined us for the family meeting. Wayne's Aunt talked about how she noticed a change in him the last couple weeks. She described him as more isolative in his room. Wayne stated he was drinking more and was drinking in his room. Asked his Aunt if there is alcohol in the house? She said that the 3 people staying there were drinking, but they are doing it in the garage. She said she doesn't drink anymore with Wayne. She realizes that it's not helpful to his recovery. Wayne seems to have some concern about the people at the house drinking and how that will impact his recovery. States they drink beer mostly, but if there is hard liquor he is very tempted. He does not like beer. We talked about informing them that they have to drink off the premises if they want to drink while they are living there or they can abstain. The Aunt seems to welcome their company and reports that they are very helpful people and do alot around the house for her. Talked about the importance of attending AA and attending IOP through [facility]. Wayne told his Aunt that he may need to use her car to get to IOP. She seemed fine with that. Discussed the legal stressors going on and the importance of him continuing to talk to people about what he is going through and feeling. His Aunt reinforced the fact that she is there for him to talk to. She feels he is looking much better and was appreciative of the help he is currently getting. Welcoming him back home later this week.
--- NOTE | 2016-08-04 19:10 | PN- Diabetes ---
Assessment/Plan Assessment: 30 y/o male with PMH significant for hypertension, diabetes mellitus, dyslipidemia, hep C, bipolar disorder, anxiety and depression, was admitted for community acquired pneumonia, acute alcohol intoxication, worsening depression, anxiety as well as suicidal ideation. Patient was transferred to Inpatient Psychiatry for the suicidal ideation. Levemir was increased to 12 units twice a day. He is on Novolog coverage before meals and Novolog coverage at bedtime. The patients blood sugars are stillsomewhat high. The patient does not have a previous diagnosis of thyroid disease . Thyroid tests done on 07/20/2016 showed TSH 4.42 and FT4 of 0.77. Repeat TSH 1.73, free T4 1.35 and TT3 1.52; anti TPO 51 and anti Tg < 15. Plan: Will continue the present insulin for now. I have asked the patient to be careful on his diet. Will adjust insulin firther after todays readings. Subjective Subjective: feels ok Review of Systems Constitutional: Denies: chills, malaise. Cardiovascular: Denies: chest pain. Respiratory: Denies: short of breath. Gastrointestinal: Denies: nausea, vomiting. Skin: Reports: no symptoms. Objective Last 24 Hrs of Vital Signs/I&O Vital Signs Date Time Temp Pulse Resp B/P Pulse O2 O2 Flow FiO2 Ox Delivery Rate 08/04 1548 74 115/66 02/06 1226 71 118/59 02/06 0756 98.2 76 141/77 02/06 0750 96.6 78 134/66 02/05 2107 96.6 78 134/66 02/ 1942 96.6 78 134/66 Vital Signs Date Time Temp Pulse Resp B/P Pulse O2 O2 Flow FiO2 Ox Delivery Rate 08/04 1548 74 115/66 02/06 1226 71 118/59 02/06 0756 98.2 76 141/77 02/06 0750 96.6 78 134/66 02/05 2107 96.6 78 134/66 02/ 1942 96.6 78 134/66 Physical Exam General Appearance: alert, awake, comfortable Head: normal appearance Neck: normal inspection Respiratory: normal breath sounds Cardiovascular: regular rate/rhythm Abdomen: obese Extremities: no edema Current Medications: Current Medications Sig/Christopher Start time Last Medication Dose Route Stop Time Status Admin Acetaminophen 650 MG .STK-MED ONE 08/04 0959 DC PO 02 1000 Acetaminophen 650 MG Q6P PRN 02/ 1200 AC 08/04 PO 1721 Al Hydroxide/Mg 30 ML Q4-6 PRN PRN 07/30 1215 AC 08/01 Hydroxide PO 1403 Albuterol Sulfate 2 PUF Q6P PRN 02 1145 AC INH Atorvastatin Calcium 20 MG 1700 02/02 1700 AC 08/04 PO 1716 Brexpiprazole 3 MG DAILY 08/02 1000 AC 08/04 PO 0750 Diphenoxylate HCl/ 2.5 MG BID PRN 08/01 1315 DC 08/02 Atropine PO 1302 Fish Oil 2,100 MG BID 07/30 2200 AC 08/04 PO 0751 Fluoxetine HCl 30 MG DAILY 08/04 1000 AC 08/04 PO 0751 Folic Acid 1 MG DAILY 07/31 1000 AC 08/04 PO 0750 Gabapentin 200 MG Q8P PRN 08/04 1515 AC 08/04 PO 1531 Gemfibrozil 600 MG BID 07/30 2200 AC 08/04 PO 0751 Hydroxyzine HCl 50 MG Q6P PRN 07/30 2045 AC 08/04 PO 1720 Insulin Aspart 0 TIDAC/HS 07/31 2100 AC 08/04 SC 1718 Insulin Detemir 15 UNITS BID 08/03 2200 AC 08/04 SC 1006 Lamotrigine 100 MG BID 07/30 2200 AC 08/04 PO 0751 Losartan Potassium 25 MG DAILY 07/31 1000 AC 08/04 PO 0750 Magnesium Hydroxide 30 ML AT BEDTIME PRN 07/30 1215 AC PO Metformin HCl 1,000 MG 0800,1700 02/ 1700 AC 08/04 PO 1717 Methadone HCl 100 MG 0600 /03 0600 AC 08/04 PO 0621 Multivitamins 1 TAB DAILY 07/31 1000 AC 08/04 PO 0751 Nicotine 2 MG Q2P PRN 07/31 1230 AC 08/04 PO 1441 Nicotine 21 MG DAILY 07/31 1000 AC 08/04 TOP 0751 Omeprazole 40 MG DAILY AC 07/30 1205 AC 08/04 PO 0621 Prazosin HCl 2 MG 2200 08/04 2200 AC PO Prazosin HCl 1 MG AT BEDTIME 07/30 2200 DC 08/03 PO 2107 Pregabalin 100 MG BID 07/30 2200 AC 08/04 PO 0750 Sitagliptin Phosphate 100 MG DAILY 07/31 1000 AC 08/04 PO 0751 Thiamine HCl 100 MG DAILY 07/31 1000 AC 08/04 PO 0751 Trazodone HCl 50 MG AT BEDTIME 07/31 2200 AC 08/03 PO 210 Trazodone HCl 50 MG AT BEDTIME PRN 07/31 1245 AC 08/04 PO 0300
[2016-08-04 19:35] VITALS: BP 132/65
[2016-08-05 07:41] VITALS: BP 129/72
--- NOTE | 2016-08-05 09:04 | CP SOUTH PROGRESS NOTE PSYCH ---
Psych (Inpt) Progress Note Progress Note Include the following elements, when applicable: Involvement in the active treatment of the patient with behavioral observations of the patient and the patient's response to the treatment. Review of the ongoing treatment process in the context of the treatment plan. Indication of how multi-disciplinary staff members are carrying out the treatment plan. Plans for future interventions and recommendations for revision of the treatment plan. Liaison with other physicians/providers. Progress Note: [I discussed this patient's progress to date, current mental status, treatment process in the context of the treatment plan, and discharge planning with staff/ team in the daily morning inpatient team meeting. I also met with the patient myself in individual session.] SUBJECTIVE: "I feel ok." OBJECTIVE: Current Medications Sig/Christopher Start time Last Medication Dose Route Stop Time Status Admin Acetaminophen 650 MG .STK-MED ONE 08/05 0415 DC PO 08/05 0416 Acetaminophen 650 MG .STK-MED ONE 08/04 1716 DC PO 08/04 1717 Acetaminophen 650 MG Q6P PRN 07/30 1200 AC 08/05 PO 0420 Al Hydroxide/Mg 30 ML Q4-6 PRN PRN 07/30 1215 AC 08/01 Hydroxide PO 1403 Albuterol Sulfate 2 PUF Q6P PRN 07/30 1145 AC INH Atorvastatin Calcium 20 MG 1700 07/31 1700 AC 08/04 PO 1716 Brexpiprazole 3 MG DAILY 08/02 1000 AC 08/05 PO 0752 Fish Oil 2,100 MG BID 07/30 2200 AC 08/05 PO 0752 Fluoxetine HCl 30 MG DAILY 08/04 1000 AC 08/05 PO 0953 Folic Acid 1 MG DAILY 07/31 1000 DC 08/05 PO 0752 Gabapentin 200 MG Q8P PRN 08/04 1515 AC 08/05 PO 0753 Gemfibrozil 600 MG BID 07/30 2200 AC 08/05 PO 0753 Hydroxyzine HCl 50 MG Q6P PRN 07/30 2045 AC 08/05 PO 0956 Insulin Aspart 0 TIDAC/HS 07/31 2100 AC 08/05 SC 1230 Insulin Detemir 15 UNITS BID 08/03 2200 AC 08/05 SC 0953 Lamotrigine 100 MG BID 07/30 2200 AC 08/05 PO 0753 [place] Carbonate 300 MG 0800 08/06 0800 UNVr PO [place] Carbonate 300 MG 22008/05 2200 UNVr PO [place] Carbonate 300 MG ONE TIME ONE 08/05 1315 UNVr / PO 08/05 1316 1309 Losartan Potassium 25 MG DAILY 07/31 1000 DC 08/05 PO 0753 Magnesium Hydroxide 30 ML AT BEDTIME PRN 07/30 1215 AC PO Metformin HCl 1,000 MG 0800,1700 02/ 1700 AC 08/05 PO 0753 Methadone HCl 100 MG 0600 08/01 0600 AC 08/05 PO 0538 Multivitamins 1 TAB DAILY 07/31 1000 AC 08/05 PO 0753 Nicotine 2 MG Q2P PRN 07/31 1230 AC 08/05 PO 0957 Nicotine 21 MG DAILY 07/31 1000 AC 08/05 TOP 0752 Omeprazole 40 MG DAILY AC 07/30 1205 AC 08/05 PO 0538 Prazosin HCl 2 MG 2200 08/04 2200 AC 08/04 PO 2139 Pregabalin 100 MG BID 07/30 2200 AC 08/05 PO 0757 Sitagliptin Phosphate 100 MG DAILY 07/31 1000 AC 08/05 PO 0753 Thiamine HCl 100 MG DAILY 07/31 1000 DC 08/05 PO 0753 Trazodone HCl 50 MG AT BEDTIME 07/31 2200 AC 08/04 PO 2135 Trazodone HCl 50 MG AT BEDTIME PRN 07/31 1245 AC 08/04 PO 0300 Vital Signs Date Time Temp Pulse Resp B/P Pulse O2 O2 Flow FiO2 Ox Delivery Rate 08/05 0753 98.4 77 129/72 08/05 0741 98.4 77 129/72 / 2139 72 132/65 / 1935 97.1 72 132/65 / 1548 74 115/66 08/04 1226 71 118/59 ASSESSMENT: VM left at [facility] in [place] for patient's outpatient clinician Ryann, asking for her to return my phone call with the contact information for patient's outpatient INFORMATION SECURITY ARCHITECT Violetta Nixon to obtain clinical collateral. Awaiting return phone call. Chart, progress notes, FS, labs, VS, and medication list reviewed. Met with patient today, who presented A&Ox3. Affect was full-range and mood euthymic. Patient had no complaints. Reported his mood as "good." Reported feeling supported yesterday by his great aunt during family meeting. He identified her as a positive support, and is in favor of discharge plan [facility] [place], [place] where he will continue outpatient Methadone treatment and medication management. He denied active and passive suicidal ideation, plans and intent. He denied homicidal ideation. Patient reported feeling safe on unit, but expressed some concern about once being discharged and if suicidal ideation should recur. Educated patient on the importance of calling 911/going to nearest emergency department in the event he should ever feel unsafe or endorse suicidal ideation once discharged. Patient verbalized understanding of education. Also educated patient on trial of [place] for anti-suicidal properties (see below note for additional details). He denied auditory and visual hallucinations. He reported improved sleep and an absence of nightmares on increased Prazosin 2mg at HS. He reported reduced anxiety on Gabapentin 200mg Q8H prn. He denied acute symptoms of depression. He denied feeling helpless, hopeless, worthless and guilty. Thought process was linear and goal-directed. Patient motivated to abstain from all substances post-discharge. Thought content was appropriate. Cognition was grossly intact. Reviewed trial of [place] for anti-suicidal properties given the severity of patient's recent/past suicide attempt(s); the risk/benefit/SE profiles of this medication were reviewed with the patient. Of note, the patient is on Cozaar which can increase the risk of [place] toxicity. Spoke to Delfin, pharmacist from Inpatient Pharmacy, who reported risk for [place] toxicity is greatest between 3-5 weeks after starting trial. TAMIA was obtained to contact patient's PCP Dr. Meza at [facility] in [place], [place]. Reviewed recommendation of [place] trial for anti-suicidal properties, presently prescribed Cozaar 25mg for HTN (by Dr. Meza), and increased risk for [place] toxicity. Reviewed patien'ts BPs (wnl) with Dr. Meza, who was in favor of [place] recommendation, and avised to discontinue Cozaar, start trial of [place] and continue monitoring patient's BP. Outpatient appointment was scheduled for patient with PCP Dr. Meza on 08/14/16 at 1:40PM. PLAN: 1. Continue monitoring the patient on unit for safety, suicidal ideation and mood. 2. Start [place] 300mg BID for anti-suicidal properties. 3. Li level scheduled for 08/07/16 at 0600 (will not be a trough level). Will provide patient with outpatient lab slip on discharge for rpt level. 4. Discontinue Cozaar 25mg daily per PCP Dr. Meza and monitor pt's BP. Consider alternative anti-HTN medication if becomes hypertensive. * Appointment scheduled with PCP Dr. Meza on 08/14/16 at 1:40PM.* 5. Continue all other medications. 6. Discharge scheduled for with likely f/u to [facility] in [place], [place].
--- NOTE | 2016-08-05 09:51 | SOCIAL WORKER PROG NOTE PSYCH ---
Social Work Progress Note Progress Note Called [facility] with Wayne present to speak with his counselor. His counselor's name is Ryann Mcqueen [phone]. Informed her of what led up to his hospitalization and what some of the triggers were. She sounded pretty familiar with what has been happening with Wayne. Asked if he could attend their IOP there? She said she will discuss it with the clinical team and get back to me. She sounded as if she wanted Wayne to do a 30 day rehab. Wayne is not interested in that at this time and doesn't feel it's necessary. I told her that he would be limited to where he could go and I may not be able to get him in anywhere from here, so I was thinking IOP. Their IOP is 3 days a week from 9 -12pm. She told me that she will discuss it with their clinical team and get back to me. He has been seeing an COMMUNICATIONS ASSOCIATE by the name of Violetta Nixon there. Wayne is doing well today. Feels his mood is good. Was happy that his Aunt was supportive at the meeting yesterday.
[2016-08-05 12:08] VITALS: BP 116/58
--- NOTE | 2016-08-05 14:23 | IP INCIDENTAL NOTE PSYCH ---
Incidental Note Notation: Received call back from patient's clinician Ryann from [facility] in [place]. She reported that Violetta Nixon APRN is out of office today, but can be reached at [facility] tomorrow at #[phone]. VM left for Violetta Nixon APRN today, and will attempt to call again tomorrow for collateral.
[2016-08-05 15:59] VITALS: BP 115/63
[2016-08-05 20:22] VITALS: BP 117/58
[2016-08-06 07:29] VITALS: BP 122/63
--- NOTE | 2016-08-06 10:32 | CP SOUTH PROGRESS NOTE PSYCH ---
Psych (Inpt) Progress Note Progress Note Include the following elements, when applicable: Involvement in the active treatment of the patient with behavioral observations of the patient and the patient's response to the treatment. Review of the ongoing treatment process in the context of the treatment plan. Indication of how multi-disciplinary staff members are carrying out the treatment plan. Plans for future interventions and recommendations for revision of the treatment plan. Liaison with other physicians/providers. Progress Note: [I discussed this patient's progress to date, current mental status, treatment process in the context of the treatment plan, and discharge planning with staff/ team in the daily morning inpatient team meeting. I also met with the patient myself in individual session.] SUBJECTIVE: "I'm feeling better." OBJECTIVE: Current Medications Sig/Christopher Start time Last Medication Dose Route Stop Time Status Admin Acetaminophen 650 MG Q6P PRN 07/30 1200 AC 08/05 PO 0420 Al Hydroxide/Mg 30 ML Q4-6 PRN PRN 07/30 1215 AC 08/01 Hydroxide PO 1403 Albuterol Sulfate 2 PUF Q6P PRN 07/30 1145 AC INH Atorvastatin Calcium 20 MG 1700 07/31 1700 AC 08/05 PO 1604 Brexpiprazole 3 MG DAILY 08/02 1000 AC 08/06 PO 0747 Fish Oil 2,100 MG BID 07/30 2200 AC 08/06 PO 0744 Fluoxetine HCl 30 MG DAILY 08/04 1000 AC 08/06 PO 0746 Gabapentin 200 MG Q8P PRN 08/04 1515 AC 08/06 PO 0704 Gemfibrozil 600 MG BID 07/30 2200 AC 08/06 PO 0743 Hydroxyzine HCl 50 MG Q6P PRN 07/30 2045 AC 08/06 PO 0856 Insulin Aspart 0 TIDAC/HS 07/31 2100 AC 08/06 SC 1214 Insulin Detemir 16 UNITS BID 08/06 2200 AC SC Insulin Detemir 15 UNITS BID 08/03 2200 DC 08/06 SC 0936 Lamotrigine 100 MG BID 07/30 2200 AC 08/06 PO 0743 [place] Carbonate 300 MG 0800 08/06 0800 AC 08/06 PO 0743 [place] Carbonate 300 MG 2200 08/05 2200 AC 08/05 PO 2135 Magnesium Hydroxide 30 ML AT BEDTIME PRN 07/30 1215 AC PO Metformin HCl 1,000 MG 0800,1700 07/30 1700 AC 08/06 PO 0743 Methadone HCl 100 MG 0600 08/01 0600 AC 08/06 PO 0608 Multivitamins 1 TAB DAILY 07/31 1000 AC 08/06 PO 0745 Nicotine 2 MG Q2P PRN 07/31 1230 AC 08/06 PO 1312 Nicotine 21 MG DAILY 07/31 1000 AC 08/06 TOP 0747 Omeprazole 40 MG DAILY AC 07/30 1205 AC 08/06 PO 0608 Prazosin HCl 2 MG 2200 08/04 2200 AC 08/05 PO 2135 Pregabalin 100 MG BID 07/30 2200 AC 08/06 PO 0744 Sitagliptin Phosphate 100 MG DAILY 07/31 1000 AC 08/06 PO 0743 Trazodone HCl 50 MG AT BEDTIME 07/31 2200 AC 08/05 PO 2135 Trazodone HCl 50 MG AT BEDTIME PRN 07/31 1245 AC 08/04 PO 0300 Vital Signs Date Time Temp Pulse Resp B/P Pulse O2 O2 Flow FiO2 Ox Delivery Rate 08/06 1217 74 127/66 08/06 0729 97.9 75 122/63 08/05 2135 80 117/58 08/05 2022 96.0 80 117/58 08/05 1559 81 115/63 ASSESSMENT: Chart, progress notes, VS, FS, labs, and medication list reviewed. FS's remain variable ranging from >300 to low 200's[address] Dr. Ferraro, Levemir was increased to 16 units BID. BP remains stable since discontinuing Cozaar 25mg daily. Will continue to monitor. Met with patient today together with Danyelle Rodas LCSW. Patient presented A&Ox3. Speech was appropriate in rate, tone and volume. Eye contact was appropriate. He had no complaints. Reported continued improvement in sleep, reported sleeping approximately 6 hours last night, and denied presence of nightmares. He reported depression of 2/10 (10 being the worst) and anxiety of 0/10 (10 being the worst) . He denied active and passive suicidal ideation, plans and intent. He denied homicidal ideation and auditory/visual hallucinations. Denied feeling hopeless, helpless, worthless, and guilty. Reported appetite as good. Thought process appeared organized and goal-directed. Thought content was appropriate. Cognition was grossly intact. Psychoeducation was provided to patient on the risks associated with combined use of psychiatric and medical medications. Patient verbalized understanding of education, and appeared motivated to remain abstinent from alcohol/other drugs. Patient denied urges/ cravings to use alcohol/other drugs. Danyelle Rodas LCSW, and I reviewed with Wayne that [facility] was initially reluctant to having him return to their program and recommended he follow-up with inpatient rehab. However, [facility] did agree to have Wayne return to their IOP program. Patient was in favor of IOP plan. Patient reported tolerating [place]inta trial well (started yesterday for anti- suicidal properties given history/recent severe suicidal attempt); he denied untoward medication effects. No evidence of tremor noted. 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 PLAN: 1. Cotinue monitoring the patient on unit for mood and safety. 2. Continue current medications. 3. Will continue monitoring BP, given d/c of Cozaar 25mg daily per Dr. Meza PCP, given start of Malinta and potential risk for lithium toxicity on combined regimen. Will intiate alternative antihypertensive if BP becomes elevated. 4. [place] level scheduled for Thursday morning at 0600. 5. Endocrine appointment scheduled at Dr. Ferraro's office on 08/22/16 at 9:30AM with Breann Holly APRN. 6. Anticipated d/c on 08/08/16 with f/u at [facility] in [place], [place]; Breann Holly APRN for DM management; and PCP Dr. Meza.
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
[2016-08-06 12:17] VITALS: BP 127/66
--- NOTE | 2016-08-06 12:53 | PN- Diabetes ---
Assessment/Plan Assessment: 30 y/o male with PMH significant for hypertension, diabetes mellitus, dyslipidemia, hep C, bipolar disorder, anxiety and depression, was admitted for community acquired pneumonia, acute alcohol intoxication, worsening depression, anxiety as well as suicidal ideation. Patient was transferred to Inpatient Psychiatry for the suicidal ideation. He is presently on 15 units of Levemir twice a day.. He is on Novolog coverage before meals and Novolog coverage at bedtime. The patient is also on metformin and Januvia. The patient's blood sugars yesterday were 301 before breakfast 131 before lunch 291 before dinner and 207 at bedtime. This morning his fingerstick blood sugar is 263 The patient does not have a previous diagnosis of thyroid disease . Thyroid tests done on 07/20/2016 showed TSH 4.42 and FT4 of 0.77. Repeat TSH 1.73, free T4 1.35 and TT3 1.52; anti TPO 51 and anti Tg < 15. Plan: I suggest increasing his Levemir to 16 units twice a day. I would continue the present sliding scale NovoLog. I have asked the patient to be careful on his diet. Subjective Subjective: Feels improved Review of Systems Constitutional: Denies: chills, fever. Cardiovascular: Denies: chest pain. Gastrointestinal: Denies: nausea, vomiting. Skin: Reports: no symptoms. Objective Last 24 Hrs of Vital Signs/I&O Vital Signs Date Time Temp Pulse Resp B/P Pulse O2 O2 Flow FiO2 Ox Delivery Rate 08/06 1217 74 127/66 02/ 0729 97.9 75 122/63 08/05 2135 80 117/58 08/05 2021 96.0 80 117/58 08/05 1559 81 115/63 Vital Signs Date Time Temp Pulse Resp B/P Pulse O2 O2 Flow FiO2 Ox Delivery Rate 08/06 1217 74 127/66 02/08 0729 97.9 75 122/63 08/05 2135 80 117/58 /2021 96.0 80 117/58 / 1559 81 115/63 Physical Exam General Appearance: well developed/nourished, alert, awake, comfortable Head: normal appearance Neck: normal inspection Respiratory: normal breath sounds Cardiovascular: regular rate/rhythm Abdomen: normal bowel sounds Extremities: normal inspection Current Medications: Current Medications Sig/Christopher Start time Last Medication Dose Route Stop Time Status Admin Acetaminophen 650 MG Q6P PRN 02/ 1200 AC 08/05 PO 0420 Al Hydroxide/Mg 30 ML Q4-6 PRN PRN 07/30 1215 AC 08/01 Hydroxide PO 1403 Albuterol Sulfate 2 PUF Q6P PRN 02 1145 AC INH Atorvastatin Calcium 20 MG 1700 02/02 1700 AC 08/05 PO 1604 Brexpiprazole 3 MG DAILY 08/02 1000 AC 08/06 PO 0747 Fish Oil 2,100 MG BID 07/30 2200 AC 08/06 PO 0744 Fluoxetine HCl 30 MG DAILY 08/04 1000 AC 08/06 PO 0746 Gabapentin 200 MG Q8P PRN 08/04 1515 AC 08/06 PO 0704 Gemfibrozil 600 MG BID 07/30 2200 AC 08/06 PO 0743 Hydroxyzine HCl 50 MG Q6P PRN 07/30 2045 AC 08/06 PO 0856 Insulin Aspart 0 TIDAC/HS 07/31 2100 AC 08/06 SC 1214 Insulin Detemir 15 UNITS BID 08/03 2200 AC 08/06 SC 0936 Lamotrigine 100 MG BID 07/30 2200 AC 08/06 PO 0743 [place] Carbonate 300 MG 0800 /08 0800 AC 08/06 PO 0743 [place] Carbonate 300 MG 2200 08/05 2200 AC 08/05 PO 2135 [place] Carbonate 300 MG ONE TIME ONE 08/05 1315 DC / PO 07 1316 1309 Magnesium Hydroxide 30 ML AT BEDTIME PRN 07/30 1215 AC PO Metformin HCl 1,000 MG 0800,1700 07/30 1700 AC 08/06 PO 0743 Methadone HCl 100 MG 0600 08/01 0600 AC 08/06 PO 0608 Multivitamins 1 TAB DAILY 07/31 1000 AC 08/06 PO 0745 Nicotine 2 MG Q2P PRN 07/31 1230 AC 08/06 PO 1117 Nicotine 21 MG DAILY 07/31 1000 AC 08/06 TOP 0747 Omeprazole 40 MG DAILY AC 07/30 1205 AC 08/06 PO 0608 Prazosin HCl 2 MG 2200 06 2200 AC 08/05 PO 2135 Pregabalin 100 MG BID 07/30 2200 AC 08/06 PO 0744 Sitagliptin Phosphate 100 MG DAILY 07/31 1000 AC 08/06 PO 0743 Trazodone HCl 50 MG AT BEDTIME 07/31 2200 AC 08/05 PO 2135 Trazodone HCl 50 MG AT BEDTIME PRN 07/31 1245 AC 08/04 PO 0300
--- NOTE | 2016-08-06 15:12 | IP INCIDENTAL NOTE PSYCH ---
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 Awaiting return phone call.
[2016-08-06 15:40] VITALS: BP 133/72
[2016-08-06 20:02] VITALS: BP 136/58
[2016-08-07 07:30] VITALS: BP 121/64
--- NOTE | 2016-08-07 10:03 | CP SOUTH PROGRESS NOTE PSYCH ---
Psych (Inpt) Progress Note Progress Note Include the following elements, when applicable: Involvement in the active treatment of the patient with behavioral observations of the patient and the patient's response to the treatment. Review of the ongoing treatment process in the context of the treatment plan. Indication of how multi-disciplinary staff members are carrying out the treatment plan. Plans for future interventions and recommendations for revision of the treatment plan. Liaison with other physicians/providers. Progress Note: [I discussed this patient's progress to date, current mental status, treatment process in the context of the treatment plan, and discharge planning with staff/ team in the daily morning inpatient team meeting. I also met with the patient myself in individual session.] SUBJECTIVE: "I feel really good." OBJECTIVE: Current Medications Sig/Christopher Start time Last Medication Dose Route Stop Time Status Admin Acetaminophen 650 MG .STK-MED ONE 08/06 1826 DC PO 08/06 1827 Acetaminophen 650 MG Q6P PRN 07/30 1200 AC 08/07 PO 0323 Al Hydroxide/Mg 30 ML Q4-6 PRN PRN 07/30 1215 AC 08/01 Hydroxide PO 1403 Albuterol Sulfate 2 PUF Q6P PRN 07/30 1145 AC INH Atorvastatin Calcium 20 MG 1700 07/31 1700 AC 08/06 PO 1704 Brexpiprazole 3 MG DAILY 08/02 1000 AC 08/07 PO 0730 Fish Oil 2,100 MG BID 07/30 2200 AC 08/07 PO 0730 Fluoxetine HCl 30 MG DAILY 08/04 1000 AC 08/07 PO 0845 Gabapentin 300 MG 0800,1400,2200 08/07 1400 AC PO Gabapentin 200 MG Q8P PRN 08/04 1515 DC 08/06 PO 1604 Gemfibrozil 600 MG BID 07/30 2200 AC 08/07 PO 0729 Hydroxyzine HCl 50 MG Q8P PRN 08/07 0945 DC PO Hydroxyzine HCl 50 MG .STK-MED ONE 08/06 1700 DC PO 08/06 1701 Hydroxyzine HCl 50 MG .STK-MED ONE 08/06 1307 DC PO 08/06 1308 Hydroxyzine HCl 50 MG Q6P PRN 07/30 2045 DC 08/07 PO 0736 Insulin Aspart 0 TIDAC/HS 07/31 2100 AC 08/07 SC 0732 Insulin Detemir 16 UNITS BID 08/06 2200 AC 08/07 SC 0847 Insulin Detemir 15 UNITS BID 08/03 2200 DC 08/06 SC 0936 Lamotrigine 100 MG BID 07/30 2200 AC 08/07 PO 0729 [place] Carbonate 300 MG 0800 08/06 0800 AC 08/07 PO 0729 [place] Carbonate 300 MG 2200 08/05 2200 AC 08/06 PO 2227 Magnesium Hydroxide 30 ML AT BEDTIME PRN 07/30 1215 AC PO Metformin HCl 1,000 MG 0800,1700 07/30 1700 AC 08/07 PO 0729 Methadone HCl 100 MG 0600 08/01 0600 AC 08/07 PO 0541 Multivitamins 1 TAB DAILY 07/31 1000 AC 08/07 PO 0729 Nicotine 2 MG .STK-MED ONE 08/06 1307 DC PO 08/06 1308 Nicotine 2 MG .STK-MED ONE 08/06 1112 DC PO 08/06 1113 Nicotine 2 MG Q2P PRN 07/31 1230 AC 08/07 PO 0845 Nicotine 21 MG DAILY 07/31 1000 AC 08/07 TOP 0730 Omeprazole 40 MG DAILY AC 07/30 1205 AC 08/07 PO 0541 Prazosin HCl 2 MG 22008/04 2200 AC 08/06 PO 2226 Pregabalin 100 MG BID 07/30 2200 AC 08/07 PO 0732 Sitagliptin Phosphate 100 MG DAILY 07/31 1000 AC 08/07 PO 0729 Trazodone HCl 50 MG AT BEDTIME 07/31 2200 AC 08/06 PO 2226 Trazodone HCl 50 MG AT BEDTIME PRN 07/31 1245 DC 08/04 PO 0300 Vital Signs Date Time Temp Pulse Resp B/P Pulse O2 O2 Flow FiO2 Ox Delivery Rate 08/07 729 98.8 71 121/64 08/07 0005 65 93 08/06 2225 136/58 08/06 2220 62 98 08/06 2002 97.3 73 136/58 08/06 1540 71 133/72 08/06 1217 74 127/66 ASSESSMENT: Chart, progress notes, FS, labs, VS and medication list reviewed. Met with patient today who presented alert and oriented to person, place, time and situation. Eye contact was appropriate. Speech was normal in rate, tone and volume. Affect was non-labile and full-range. Reported mood was "really good" and feeling excited for discharge tomorrow. Reported good effect from processing feelings in milieu groups, and looked forward to participating in Dual IOP at [facility] in [place]. He reported anxiety of 3/10 (10 being the worst) and depression/sadness of 0/10 (10 being the worst). He denied feeling hopeless, helpless, worthless, and guilty. He reported feeling moderately worried about his fiance who is presently incarcerated, however reported that IOP would servce as a platform for him to process through his feelings. The patient reported occasional flare-ups of b/l lower extremity neuropathy, and requested that Gabapentin be increased for pain and anxiety. Patient was agreeable to discontinuing prn Atarax for anxiety, and changing Gabapentin from 200mg Q8H prn to 300mg TID scheduled. Patient reported sleeping well, and denied NMAs. He reported appetite was good. He denied further physical complaints. Patient denied active and passive suicidal ideation, plans and intent. He denied homicidal ideation. He denied auditory and visual hallucinations. There was no evidence of paranoia or heber delusions. Thought process was organized and goal- directed. Thought content was appropriate. Cognition was grossly intact. PLAN: 1. Continue monitoring the patient on unit for mood and safety. 2. Discontinue prn Atarax for anxiety. 3. Change Gabapentin 200mg [id number] prn for anxiety to Gabapentin 300mg TID for anxiety/neuropathic pain. 4. [place] level scheduled on 08/08/16 at 0600. 5. Discharge scheduled for tomorrow with f/u to [facility] in [place], [place].
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
[2016-08-07 12:35] VITALS: BP 128/77
--- NOTE | 2016-08-07 14:18 | PN- Att Addend ---
Attending Addendum Attending Brief Note S: Called to evaluate chest pain. Patient states that he has had some left sternal sharp/stabbing intermittent pains since last pm. No exertional symptoms. No dyspnea, nausea or radiation. Has h/o chest pain in past- has had negative cardiac w/u. O: VS: Vital Signs Date Time Temp Pulse Resp B/P Pulse O2 O2 Flow FiO2 Ox Delivery Rate 08/07 1235 73 128/77 08/07 0730 98.8 71 121/64 08/07 0005 65 93 08/06 2226 136/58 08/06 2220 62 98 08/06 2002 97.3 73 136/58 08/06 1540 71 133/72 Current Medications Sig/Christopher Start time Last Medication Dose Route Stop Time Status Admin Acetaminophen 650 MG .STK-MED ONE 08/07 0315 DC PO 08/07 0316 Acetaminophen 650 MG .STK-MED ONE 08/06 1826 DC PO 08/06 1827 Acetaminophen 650 MG Q6P PRN 07/30 1200 AC 08/07 PO 0323 Al Hydroxide/Mg 30 ML Q4-6 PRN PRN 07/30 1215 AC 08/07 Hydroxide PO 1410 Albuterol Sulfate 2 PUF Q6P PRN 07/30 1145 AC INH Atorvastatin Calcium 20 MG 1700 07/31 1700 AC 08/06 PO 1704 Brexpiprazole 3 MG DAILY 08/02 1000 AC 08/07 PO 0730 Fish Oil 2,100 MG BID 07/30 2200 AC 08/07 PO 0730 Fluoxetine HCl 30 MG DAILY 08/04 1000 AC 08/07 PO 0845 Gabapentin 300 MG 0800,1400,2200 08/07 1400 AC 08/07 PO 1410 Gabapentin 200 MG Q8P PRN 08/04 1515 DC 08/06 PO 1604 Gemfibrozil 600 MG BID 07/30 2200 AC 08/07 PO 0729 Hydroxyzine HCl 50 MG Q8P PRN 08/07 0945 DC PO Hydroxyzine HCl 50 MG .STK-MED ONE 08/06 1700 DC PO 08/06 1701 Hydroxyzine HCl 50 MG Q6P PRN 07/30 2045 DC 08/07 PO 0736 Insulin Aspart 0 TIDAC/HS 07/31 2100 AC 08/07 SC 1232 Insulin Detemir 16 UNITS BID 08/06 2200 AC 08/07 SC 0847 Lamotrigine 100 MG BID 07/30 2200 AC 08/07 PO 0729 [place] Carbonate 300 MG 0800 08/06 0800 AC 08/07 PO 0729 [place] Carbonate 300 MG 22008/05 2200 AC 08/06 PO 2227 Magnesium Hydroxide 30 ML AT BEDTIME PRN 07/30 1215 AC PO Metformin HCl 1,000 MG 0800,1700 07/30 1700 AC 08/07 PO 0729 Methadone HCl 100 MG 0600 08/01 0600 AC 08/07 PO 0541 Multivitamins 1 TAB DAILY 07/31 1000 AC 08/07 PO 0729 Nicotine 2 MG Q2P PRN 07/31 1230 AC 08/07 PO 1412 Nicotine 21 MG DAILY 07/31 1000 AC 08/07 TOP 0730 Omeprazole 40 MG BID 08/07 2200 UNVr PO Omeprazole 40 MG DAILY AC 07/30 1205 DC 08/07 PO 0541 Prazosin HCl 2 MG 2200 08/04 2200 AC 08/06 PO 2226 Pregabalin 100 MG BID 07/30 2200 AC 08/07 PO 0732 Sitagliptin Phosphate 100 MG DAILY 07/31 1000 AC 08/07 PO 0729 Trazodone HCl 50 MG AT BEDTIME 07/31 2200 AC 08/06 PO 2226 Trazodone HCl 50 MG AT BEDTIME PRN 07/31 1245 DC 08/04 PO 0300 Physical Exam: Chest: clear to A & P, no chest wall tenderness Cor: RRR, nl S1, S2 w/o murm Abd: BS+, soft, NT Ext: no edema/tenderness EKG NSR- no significant change from prior tracings. Impression/Plan: #Chest Pain- most likely secondary to his known GERD. Atypical for cardiac pain and EKG is w/o change. He has had negative stress test 10/11 and prior normal ECHOs, etc. Plan: Will observe for further pain. Increased Omeprazole to bid dosing at present.
[2016-08-07] MEDS ORDERED: VENTOLIN HFA18 GM INH (15:21)
[2016-08-07] MEDS ORDERED: FLUOXETINE HCL10 M2 PO (15:21)
[2016-08-07] MEDS ORDERED: REXULTI1 MG PO (15:21)
[2016-08-07] MEDS ORDERED: LAMICTAL100 M2 PO (15:21)
[2016-08-07] MEDS ORDERED: LEVEMIR100 UNIT/1 SC (15:21)
[2016-08-07] MEDS ORDERED: LYRICA100 M1 PO (15:21)
[2016-08-07] MEDS ORDERED: NOVOLOG100 UNIT/2 SC (15:21)
[2016-08-07] MEDS ORDERED: LITHIUM CARBON300 M4 PO (15:21)
[2016-08-07] MEDS ORDERED: PRAZOSIN HCL2 M1 PO (15:21)
[2016-08-07] MEDS ORDERED: LOPID600 MG PO (15:21)
[2016-08-07] MEDS ORDERED: PROTONIX40 M3 PO (15:21)
[2016-08-07] MEDS ORDERED: OMEGA-3 1,0501 EACH PO (15:21)
[2016-08-07] MEDS ORDERED: METFORMIN HCL1000 M1 PO (15:21)
[2016-08-07] MEDS ORDERED: TRAZODONE HCL50 M1 PO (15:21)
[2016-08-07] MEDS ORDERED: GABAPENTIN300 M2 PO (15:21)
[2016-08-07] MEDS ORDERED: NICOTINE PATCH1 EAC3 TOP (15:21)
[2016-08-07] MEDS ORDERED: JANUVIA100 M1 PO (15:21)
[2016-08-07] MEDS ORDERED: ATORVASTATIN CA20 M1 PO (15:21)
[2016-08-07 15:50] VITALS: BP 137/74
[2016-08-07 19:27] VITALS: BP 121/63
[2016-08-08 06:54] VITALS: BP 126/69
[2016-08-08] MEDS ORDERED: PROTONIX40 M3 PO (07:25)
--- NOTE | 2016-08-08 08:10 | CP SOUTH PROGRESS NOTE PSYCH ---
Psych (Inpt) Progress Note Progress Note Include the following elements, when applicable: Involvement in the active treatment of the patient with behavioral observations of the patient and the patient's response to the treatment. Review of the ongoing treatment process in the context of the treatment plan. Indication of how multi-disciplinary staff members are carrying out the treatment plan. Plans for future interventions and recommendations for revision of the treatment plan. Liaison with other physicians/providers. Progress Note: [I discussed this patient's progress to date, current mental status, treatment process in the context of the treatment plan, and discharge planning with staff/ team in the daily morning inpatient team meeting. I also met with the patient myself in individual session.] SUBJECTIVE: "I feel so much better, thank you!" OBJECTIVE: Current Medications Sig/Christopher Start time Last Medication Dose Route Stop Time Status Admin Acetaminophen 650 MG .STK-MED ONE 08/07 1712 DC PO 08/07 1713 Acetaminophen 650 MG Q6P PRN 07/30 1200 AC 08/07 PO 0323 Al Hydroxide/Mg 30 ML Q4-6 PRN PRN 07/30 1215 AC 08/07 Hydroxide PO 1410 Albuterol Sulfate 2 PUF Q6P PRN 07/30 1145 AC INH Atorvastatin Calcium 20 MG 1700 07/31 1700 AC 08/07 PO 1712 Brexpiprazole 3 MG DAILY 08/02 1000 AC 08/07 PO 0730 Fish Oil 2,100 MG BID 07/30 2200 AC 08/07 PO 2137 Fluoxetine HCl 30 MG DAILY 08/04 1000 AC 08/07 PO 0845 Gabapentin 300 MG 0800,1400,2200 08/07 1400 AC 08/08 PO 0741 Gabapentin 200 MG Q8P PRN 08/04 1515 DC 08/06 PO 1604 Gemfibrozil 600 MG BID 07/30 2200 AC 08/07 PO 2137 Hydroxyzine HCl 50 MG Q8P PRN 08/07 0945 DC PO Hydroxyzine HCl 50 MG Q6P PRN 07/30 2045 DC 08/07 PO 0736 Insulin Aspart 0 TIDAC/HS 07/31 2100 AC 08/08 SC 0739 Insulin Detemir 16 UNITS BID 08/06 2200 AC 08/07 SC 2136 Lamotrigine 100 MG BID 07/30 2200 AC 08/07 PO 2138 [place] Carbonate 300 MG 0800 02/08 0800 AC 08/08 PO 0741 [place] Carbonate 300 MG 2200 08/05 2200 AC 08/07 PO 2137 Magnesium Hydroxide 30 ML AT BEDTIME PRN 07/30 1215 AC PO Metformin HCl 1,000 MG 0800,1700 02 1700 AC 08/08 PO 0741 Methadone HCl 100 MG 0600 08/01 0600 DC 08/08 PO 0519 Multivitamins 1 TAB DAILY 07/31 1000 AC 08/07 PO 0729 Nicotine 2 MG .STK-MED ONE 08/07 1609 DC PO 08/07 1610 Nicotine 2 MG Q2P PRN 07/31 1230 AC 08/07 PO 1614 Nicotine 21 MG DAILY 07/31 1000 AC 08/07 TOP 0730 Omeprazole 40 MG BID 08/07 2200 AC 08/07 PO 2137 Omeprazole 40 MG DAILY AC 07/30 1205 DC 08/07 PO 0541 Prazosin HCl 2 MG 2200 08/04 2200 AC 08/07 PO 2141 Pregabalin 100 MG BID 07/30 2200 AC 08/07 PO 2141 Sitagliptin Phosphate 100 MG DAILY 07/31 1000 AC 08/07 PO 0729 Trazodone HCl 50 MG AT BEDTIME 07/31 2200 AC 08/07 PO 2138 Trazodone HCl 50 MG AT BEDTIME PRN 07/31 1245 DC 08/04 PO 0300 Vital Signs Date Time Temp Pulse Resp B/P Pulse O2 O2 Flow FiO2 Ox Delivery Rate 08/08 0654 97.7 68 126/69 08/07 2200 97 08/07 2141 97.4 75 121/63 08/07 1927 97.4 75 121/63 08/07 1550 71 137/74 08/07 1235 73 128/77 ASSESSMENT: Chart, progress notes, VS, FS, labs and medication list reviewed. Per dish machine operator Dr. Ferraro, patient to be discharged on SS Novolog (as per inpatient order) and Levemir 16 units BID for outpatient management. Met with the patient today on the date of discharge. Patient presented alert and oriented to person, place, time and situation. Eye contact was appropriate. Speech was normal in rate, tone, and volume. Affect was calm and full-range. Mood was euthymic. He had no complaints. He reported feeling "so much better!" He reported depression/sadness of 0/10 (10 being the worst) and anxiety of 0/10 (10 being the worst). He denied feeling hopeless, helpless, wothless and guilty. He denied passive and active suicidal ideation, plans and intent. He denied homicidal ideation. He identified protective factors of his "aunt," "my Uncle Cricket," and "my dad." He stated and also believed he will not harm himself or others. He reported his energy level was good. He reported his appetite and sleep were good. He denied the presence of nightmares. He denied auditory and visual hallucinations. Thought process was organized, linear and goal directed. Thought content was appropriate. There was no evidence of paranoia or delusions. Cognition was grossly intact. He denied urges/cravings to use alcohol and other drugs. He reported motivation to engage at [facility] for IOP treatment, and to resume AA/NA meetings and obtain a sponsor for support in sobriety. He reported tolerating all medications well and denied untoward medication effects. He reported feeling safe and ready for discharge. Patient verbalized understanding of scheduled appointments with PCP Dr. Meza at [facility], endocrinology Breann Holly APRN at [facility], and [facility]. PLAN: 1. Discharge today to home and aunt. 2. F/u with [facility] on 08/11/16. Resume methadone maintenance for opiate treatment on Thursday morning, 08/09/16. 3. F/u with PCP Dr. Meza at [facility] location on 08/14/16 at 1:40PM for management of high cholesterol and hx of HTN. 4. F/u with endocrinology Breann Holly APRN at [facility] on 08/22/16 at 9:30AM for DM management. 5. F/u with [facility] for assistance with smoking cessation on 08/20/16 at 4PM. 6. Abstain from alcohol and all other substances; attend AA/NA meetings and obtain sponsor for support in sobriety. 7. [facility] to start the evening of 08/08/16 for BID medication administration. 8. All discharge prescriptions (including rx for #100 insulin syringes) were called (#[phone]) into and faxed (#) to [facility] in [place], [place]. [facility] to pasteurizing supervisor rxs. 9. In the event of an emergency, call [phone] to nearest emergency department. Patient verbalized understanding of instruction.
--- NOTE | 2016-08-08 08:26 | DISCHARGE SUMMARY REPORT-PSYCH ---
Visit Information Visit Dates/Diagnosis' Admission Date: 07/30/16 Discharge Date: 08/08/16 Reason for Admission: Suicide attempt by carbon monoxide poisoning. Psy Discharge Primary Diag: PTSD Psy Discharge Secondary Diag: MDD, recurrent, severe; R/O Bipolar Disorder; Cannabis use disorder; Alcohol use disorder, moderate; History of opiate dependence (currently on methadone maintenance); history of cocaine abuse; Hep C ; Sleep apnea; HTN; High cholesterol; Diabetes; status-post pneumonia (resolved) ) Hospital Course Significant Lab Findings: Lab Cholesterol 204 MG/DL H 07/31/16 0610 Cholesterol/HDL Ratio 5 % H 07/31/16 0610 Free T4 1.35 ng/dL 08/02/16 0507 Hemoglobin A1c 11.6 H 07/31/16 0610 TSH 1.730 uIU/mL 08/02/16 0507 TSH &T3 &Free T4 Intrp 2.040 uIU/mL 07/31/16 0610 Total T3 1.52 ng/mL 08/02/16 0507 Triglycerides 268 mg/dL H 07/31/16 0610 [place] 0.4 mmol/L L 08/08/16 0525 Methadone Screen > 735 NG/ML H 07/27/162023 Serum Alcohol 197.0 MG/DL 07/27/162019 Urine Cannabis Screen > 80.00 NG/ML H 07/27/162023 EKG 08/07/16: Sinus Rhythm, with rate of 81. MN:168; QRSD:90; QT:400; QTc:465; P: 33; QRS: 56; T:23. Normal EKG confirmed by doctor of veterinary medicine Dr. Willie Fox. Course Complications: Elevated blood glucose > 300. See consultation section below for endocrine recommendations/management. Pneumonia, see wood mechanist recommendations below for management. Consultations: Patient was consulted by Dr. Mami Ferraro and Dr. Vance Miller from endocrinology for elevated blood sugars. Levemir was increased to 16 units SC BID and Novolog sliding scale was adjusted as follows: Before Each Meal (three times a day): Less than 80mg/dl: No coverage 80 - 150mg/dl: 6 units 151-200mg/dl: 8 units 201-250mg/dl: 10 units 251-300mg/dl: 12 units 301-350mg/dl: 14 units 351-400mg/dl: 15 units Greater than 400mg/dl: 16 units Sliding Scale at Bedtime: 251-300mg/dl: 2 units 301-350mg/dl: 3 units 351-400mg/dl: 4 units Greater than 400mg/dl: 5 units The patient was additionally consulted by Dr. Ted Graham for complaints of left sternal sharp/stabbing intermittent pains. Per Dr. Graham consult, there was no exertional symptoms. No dyspnea, nausea or radiation. Patient with h/o chest pain in past- has had negative cardiac w/u. Per Dr. Graham, chest pain was most likely secondary to his known GERD. Atypical for cardiac pain and EKG was without change. Omeprazole was changed to twice daily dosing. On discharge, Omeprazole was changed to Protonix twice daily dosing secondary to patient's insurance coverage, and having been on this previously. Allergies: Coded Allergies: NO KNOWN ALLERGIES (06/25/15) Hospital Course/TX Response: The patient was monitored on the unit for safety, suicidal ideation, alcohol withdrawal, mood and auditory hallucinations. He was monitored on [facility] protocol for alcohol withdrawal and successfully completed an Ativan taper with no complications. He participated in multimodal treatments on the unit. Rexulti was increased from 2mg daily to 3mg daily for auditory hallucinations/mood stabilization. Prazosin was increased from 1mg at bedtime to 2mg at bedtime for nightmares. Prozac was increased from 20mg daily to 30mg daily for anxiety and depression. Additionally, Bloomdale 300mg twice a day was started for its anti- suicidal properties given the patient's past/recent history of lethal suicide attempts. Patient's PCP, Dr. Mcrae, was consulted over the phone, given the combination of Cozaar which he was prescribed outside and inside of the hospital , and Bloomdale, and the increased risk for Bloomdale toxicity on this regimen. This check writer reviewed the patient's blood pressures with Dr. Mcrae, which had been stable throughout the hospital course, and per Dr. Mcrae it was recommended to discontinue Cozaar. The patient remained on Lamictal 100mg BID for mood stabilization. Trazodone 100mg at bedtime was decreased to 50mg at bedtime due to morning sedation. Gabapentin 300mg was started three times a day for anxiety/ neuropathic pain. Lyrica 100mg twice a day was also continued for neuropathic pain. The patient additionally requested a decrease in his Methadone from 110mg daily to 100mg daily secondary to feeling sedated. Methadone was decreased to 100mg daily. The patient reported tolerating all medications well and denied untoward medication effects. During the hospital course, the patient's mood and affect improved. Suicidal ideation, nightmares, and auditory hallucinations remitted. A family meeting was held with the patient, his great aunt, Danyelle RodasNJ, and this check writer. The patient's treatment progress, relapse prevention, medication regimen, level of safety and discharge planning were reviewed. Patient and his aunt verbalized understanding of the necessity that the patient not be surrounded by alcohol given the risk for relapse. The patient and his aunt verbalized understanding of the importance of the patient attending AA/NA meetings and obtaining a sponsor for support in sobriety. The patient and his aunt were in favor of the patient engaging in after care treatment at [facility]. An intake appointment was scheduled for the patient on 08/11/16 at 8:45AM for [facility]. On the date of discharge, 08/08/16, the patient presented alert and oriented to person, place, time and situation. Eye contact was appropriate. Speech was normal in rate, tone, and volume. Affect was calm and full-range. Mood was euthymic. He had no complaints. He reported feeling "so much better!" He reported depression/sadness of 0/10 (10 being the worst) and anxiety of 0/10 (10 being the worst). He denied feeling hopeless, helpless, worthless and guilty. He denied passive and active suicidal ideation, plans and intent. He denied homicidal ideation. He identified protective factors of his "aunt," "my Uncle Cricket," and "my dad." He stated and also believed he will not harm himself or others. He reported his energy level was good. He reported his appetite and sleep were good. He denied the presence of nightmares. He denied auditory and visual hallucinations. Thought process was organized, linear and goal directed. Thought content was appropriate. There was no evidence of paranoia or delusions. Cognition was grossly intact. He denied urges/cravings to use alcohol and other drugs. He reported motivation to engage at [facility] for IOP treatment, and to resume AA/NA meetings and obtain a sponsor for support in sobriety. He reported tolerating all medications well and denied untoward medication effects. He reported feeling safe and ready for discharge. Patient verbalized understanding of scheduled appointments with PCP Dr. Mcrae at [facility], endocrinology Breann Chilel APRN at [facility], and [facility]. Discharge HBIPS - Tobacco Use Treatment Offered Post DC Medications Offered: Script Given-See Med List Post DC Tobacco Treatment Plan: [facility] Tobacco Tx [facility] Appt Date: 08/20/16 Program Appt Time: 1600 - EtOH/Drug Use D/O Treatment Offered Post DC Medications Offered: Ref Med EtOH/Drug Use D/O Post DC EtOH/SubAbuse TX Plan: Other SubAbuse/Dual [facility] Program Appt Date: 08/11/16 Program Appt Time: 0900 Metabolic Screening - Screen if on a Neuroleptic Medication - Metabolic screening should include: - Blood Pressure, BMI, Glucose or Hgb A1c, & a - Lipid profile from within the past 365 days. Metabolic Screening () Not Applicable, patient not on a neuroleptic. OR ([X]) Patient on a neuroleptic(s) . Enter below results for Glucose or Hemoglobin A1C, and lipid panel if obtained during the last 365 days. BMI: Blood Pressure: 126/69 Laboratory Results (If applicable): Lab Cholesterol 204 MG/DL H 07/31/16 0610 Cholesterol/HDL Ratio 5 % H 07/31/16 0610 HDL Cholesterol 43 mg/dL 07/31/16 0610 Hemoglobin A1c 11.6 H 07/31/16 0610 LDL Cholesterol, Calc 108 mg/dL 07/31/16 0610 Triglycerides 268 mg/dL H 07/31/16 0610 Discharge Instructions General Discharge Information Discharge Medications: Discharge Medications- (Dose, route, freq, indication): HOME MEDICATION LIST START taking these NEW Home Medications: Albuterol Sulfate Dose: Inhale through mouth, Qty: 1 Called in & copy faxed to pharmacy (Ventolin Hfa) 90 2 Puff EVERY SIX HOURS Refills: 0 MCG HFA.AER.AD NEEDED as needed for asthma Take 2 puffs inhalation every 6 hours as needed for asthma exacerbation Nicotine (Nicotine Dose: On the skin, DAILY for Qty: 14 Called in & copy faxed to pharmacy Patch) 21 MG/24 HOUR 21 Milligram nicotine cessation Refills: 0 PATCH.TD24 Apply 1 patch topically every morning and remove before bedtime. Gemfibrozil (Lopid) Dose: ORAL, TWICE DAILY for Qty: 28 Called in & copy faxed to pharmacy 600 MG TABLET 600 Milligram HIGH CHOLESTROL Refills: 0 Take 1 tablet by mouth twice a day. Atorvastatin Calcium Dose: ORAL, 5 PM for HIGH Qty: 14 Called in & copy faxed to pharmacy (Atorvastatin 20 Milligram CHOLESTROL Refills: 0 Calcium) 20 MG Take 1 tablet by mouth TABLET every evening. [place]-3/Dha/Epa/Dpa/ Dose: ORAL, TWICE DAILY for Qty: 56 Called in & copy faxed to pharmacy Fish Oil ([place]-3 1, 2,100 HIGH CHOLESTROL Refills: 0 050 MG Softgel) 1, Milligram Take 2 capsule by mouth 050-1200 CAPSULE twice a day. Prazosin HCl Dose: ORAL, 2200 for nightmares Qty: 14 Called in & copy faxed to pharmacy (Prazosin HCl) 2 MG 2 Milligram Take 1 capsule by mouth Refills: 0 CAPSULE at bedtime. Gabapentin Dose: ORAL, 0800,1400,2200 for Qty: 42 Called in & copy faxed to pharmacy (Gabapentin) 300 MG 300 Milligram anxiety Refills: 0 CAPSULE Take 1 capsule by mouth three times a day. Pregabalin (Lyrica) Dose: ORAL, TWICE DAILY for Qty: 28 Called in & copy faxed to pharmacy 100 MG CAPSULE 100 Milligram Neuropathic pain Refills: 0 Take 1 capsule by mouth twice a day. Lamotrigine Dose: ORAL, TWICE DAILY for Qty: 28 Called in & copy faxed to pharmacy (Lamictal) 100 MG 100 Milligram mood stabilization Refills: 0 TABLET Take 1 tablet by mouth twice a day. Fluoxetine HCl Dose: ORAL, DAILY for Qty: 42 Called in & copy faxed to pharmacy (Fluoxetine HCl) 10 30 Milligram depression/anxiety Refills: 0 MG CAPSULE Take 3 capsules (30mg) by mouth every morning. Trazodone HCl Dose: ORAL, AT BEDTIME for Qty: 14 Called in & copy faxed to pharmacy (Trazodone HCl) 50 50 Milligram insomnia Refills: 0 MG TABLET Take 1 tablet by mouth at bedtime. Brexpiprazole Dose: ORAL, DAILY for mood Qty: 42 Called in & copy faxed to pharmacy (Rexulti) 1 MG 3 Milligram stabilization Refills: 0 TABLET Take 3 tablets by mouth every morning. [place] Carbonate Dose: ORAL, SEE INSTRUCTIONS Qty: 28 Called in & copy faxed to pharmacy (Blo[place] Carbonate) 600 Milligram for Suicide prevention Refills: 0 300 MG CAPSULE Take 1 capsule (300mg) by mouth every morning and 1 capsule (300mg) at bedtime. Metformin HCl Dose: ORAL, 0800,1700 for Qty: 28 Called in & copy faxed to pharmacy (Metformin HCl) 1, 1,000 DIABETES Refills: 0 000 MG TABLET Milligram Take 1 tablet by mouth at 0800 and 1 tablet by mouth at 5PM. Sitagliptin Dose: ORAL, DAILY for DIABETES Qty: 14 Called in & copy faxed to pharmacy Phosphate (Januvia) 100 Milligram Take 1 tablet by mouth Refills: 0 100 MG TABLET daily. Insulin Detemir Dose: Inject into fatty Qty: 1 Called in & copy faxed to pharmacy (Levemir) 100 UNIT/ 16 Units tissue, TWICE DAILY for Refills: 0 ML VIAL DIABETES Take 16 units SC twice a day. Insulin Aspart Dose: Inject into fatty Qty: 1 Called in & copy faxed to pharmacy (Novolog) 100 UNIT/ See tissue, SEE INSTRUCTIONS Refills: 0 ML VIAL Instructions for DIABETES Sliding Scale Before Each Meal (three times a day): Less than 80mg/dl: No coverage 80 - 150mg/dl: 6 units 151-200mg/dl: 8 units 201-250mg/dl: 10 units 251-300mg/dl: 12 units 301-350mg/dl: 14 units 351-400mg/dl: 15 units Greater than 400mg/dl: 16 units Sliding Scale at Bedtime: 251-300mg/dl: 2 units 301-350mg/dl: 3 units 351-400mg/dl: 4 units Greater than 400mg/dl: 5 units Pantoprazole Sodium Dose: ORAL, TWICE DAILY for Qty: 28 Called in & copy faxed to pharmacy (Protonix) 40 MG 40 Milligram GERD Refills: 0 TABLET.DR Take 1 tablet by mouth daily twice a day before meals. CT COMMUNICATION COORDINATOR reviewed. All above discharge prescriptions (including rx for #100 insulin syringes) were called into/copies faxed to [facility] in [place], [place], today. VNS service to pick-up medications and syringes. CONTINUE taking these Home Medications: Methadone HCl (Methadone Dose: ORAL, Every Morning for HCl) 5 MG TABLET 100 Milligram opiate treatment Last Taken:08/08/16 Time:0515 Multivitamin (One Daily Dose: ORAL, DAILY for Multivitamin) 1 EACH 1 Tablet SUPPLEMENT TABLET Last Taken:08/08/16 Time:0830 STOP taking these DISCONTINUED Home Medications: Losartan Potassium (Cozaar) 25 Dose: ORAL, DAILY for HIGH BLOOD MG TABLET 1 Tablet PRESSURE Reason Stopped: Per Doctor Decision Your Preferred Pharmacy [facility] [address] [place] [address] T: F: Multiple Neuroleptics: ([X]) Not Applicable OR Document below three failed attempts at monotherapy, or a plan to taper to monotherapy, or augmentation of Clozapine. () Patient's Diet: Regular. Patient's Activity: No restrictions. DC Disposition: Patient to return to home and aunt. Recommendations: The patient was advised to please take his medications as prescribed. He was advised that [facility] would start on the evening of 08/08/16 for twice daily medication management. He was advised to abstain from all substances, and to attend daily AA/NA meetings, obtain a sponsor for support in sobriety. He was advised to attend all scheduled outpatient appointments (see listed under referral section). He was advised to eat a careful diet and to excercise to help manage his diabetes. He was advised to follow-up with PCP Dr. Mcrae to evaluate if an antihypertensive medication should be restarted. Given that he is on [place], it was advised that he not be started on an LORIN inhibitor or Calcium Channel Aleida as these increase the risk for Bloom[place] toxicity. He was advised that in the event of an emergency to call 911/go to nearest emergency department. The patient verbalized understanding of all instructions. Referred To: [facility] [address] [place] [address] *Appointment scheduled with PCP Dr. Mcrae on 08/14/16 at 1:40PM. [facility] [address] [place] [address], [address] [place], [place] [phone] *Endocrinology appointment scheduled on 08/22/16 at 9:30AM with Breann Chilel APRN. [facility]] [address], [address] [place] [address] [phone]) [phone] *In-home twice daily visiting nurse service medication administration to start between 3-4PM today, 08/08/16. [facility] [address], [place] [phone] *IOP intake appointment scheduled on 08/11/16 at 8:45AM; IOP treatment every Thursday, Thursday, Thursday from 9AM-12PM. [facility] [address] [place], [place] [address] [phone])[phone] * Walk-in to group appointment on 08/20/16 at 4PM, please bring appointment card. Copies To: [facility]; ZEENAT MCRAE APRN; BREANN CHILEL APRN; [facility]; [facility]; RODRICK GIVENS,MAMI Ornelas
--- NOTE | 2016-08-08 08:51 | IP INCIDENTAL NOTE PSYCH ---
Incidental Note Notation: Received return phone call from Violetta Nixon APRN. Per collateral, she verified patient's psychiatric history which was initially provided by patient and past medical records. She reported that his alcohol use was a significant factor triggering recurrence of psychiatric symptoms. Patient's treatment progress during inpatient hospitalication was reviewed with Violetta Nixon APRN. Medication adjustments were further reviewed with Violetta Nixon APRN. She reported that she would continue to manage his outpatient medications and would further follow the patient's [place] level (08/08/16 = 0.4). She was in favor of patient's discharge plan to follow-up at [facility] for intake on Thursday08/11/16 at 8:45AM, and resume methadone treatment tomorrow morning on 05/15; in addition to the patient receiving twice daily VNS services for medication administration.
--- NOTE | 2016-08-08 09:04 | SOCIAL WORKER PROG NOTE PSYCH ---
Social Work Progress Note Progress Note Received a message that [facility] could not provide BID med administration in the [place] area. Called [facility] and set up services to start today. Spoke with Ryder Garcia, who talk all demographic information and said they will be there between 3-4pm today. Spoke with Susan and informed him of the above information. He seemed pleased and excited for discharge today. Talked about the importance of not bottling up emotions and continuing to talk to people. Also talked about continuing to work towards his sobriety. He acknowleged the importance of that as well. Informed him that he'll need to coordinate with the nurse around his methadone and IOP schedule on the days he has IOP. His Aunt and friend Wu will be coming to pick him up this afternoon. Faxed W10 to [facility].
[2016-08-08 11:57] VITALS: BP 130/74
--- NOTE | 2016-11-10 11:00 | IP INCIDENTAL NOTE PSYCH ---
Incidental Note Notation: Call received from staff at [facility]. [facility] had told them that I am following the patient. I informed [facility] that I am not. They will refer the patient to [facility].
== END 2016-08-08 12:41 | DRG 751 ==
LOC: CP SOUTH 09:47 → ENPENDDIS 16:27 → CP SOUTH 16:27
PROVIDERS: ADMIT Psychiatry & Neurology Psychiatry
DX: F33.2 Major depressive disorder, recurrent severe without psychotic features (principal); F12.90 Cannabis use, unspecified, uncomplicated; F10.20 Alcohol dependence, uncomplicated; F11.20 Opioid dependence, uncomplicated; Z87.898 Personal history of other specified conditions; B18.2 Chronic viral hepatitis C; G47.30 Sleep apnea, unspecified; E11.9 Type 2 diabetes mellitus without complications; E78.00 Pure hypercholesterolemia, unspecified
CPT/HCPCS: 36415; 86376; 86800; 93005; 93010; J3490; Q2036